=== PATIENT | male | born 1955 | race Caucasian/White ===

== ENCOUNTER → 2018-04-07 09:44 | Outpatient (CLI) | payer OTHER, SELFPAY ==
[2018-04-07 12:15] LABS: Blood Urea Nitrogen 13 mg/dL (7-18); Creatinine,Serum 1.07 mg/dL (0.70-1.30); Estimated Glomerular Filt Rate 70 ml/min (>60); GFR (African American) 85 ML/MIN (>60)
== END ==
PROVIDERS: Visit Provider Family Medicine
DX: Z01.812 Encounter for preprocedural laboratory examination (principal)
CPT/HCPCS: 36415; 82565; 84520

== ENCOUNTER → 2018-04-08 06:54 | Outpatient (CLI) | payer OTHER, SELFPAY ==
--- NOTE | 2018-04-08 | CI_ITS ---
Cerebrovascular Exam Indications: 785.9 Bruit. IMPRESSIONS 1. The bilateral vertebral arteries are patent with normal antegrade flow. 2. Study suggests 70-99% stenosis involving the right internal carotid artery. 3. Study suggests 50-69% stenosis involving the left internal carotid artery. Carotid duplex study. Complete study and Doppler flow study including spectral analysis, color and damon scale imaging. Height: Height: 188cm. Height: 74in. Weight: Weight: 112kg. Weight: 246.5lb. Body mass index: BMI: 31.7kg/m^2. Body surface area: BSA: 2.45m^2. Location: Vascular laboratory. Patient status: Outpatient. CRITICAL FINDINGS - Reported to: [facility] - Read back and verified. - 04/08/18 - 1145 - BILATERAL STENOSIS REPORTED Tables: Arterial flow: + +--------+--------+ Location V sys V ed + +--------+--------+ Right CCA - proximal 82.5cm/s 18.9cm/s + +--------+--------+ Right CCA - distal 89cm/s 17cm/s + +--------+--------+ Right ECA 85.4cm/s -------- + +--------+--------+ Right ICA - proximal 243cm/s 69.8cm/s + +--------+--------+ Right ICA - mid 136cm/s 36.7cm/s + +--------+--------+ Right ICA - distal 120cm/s 45.4cm/s + +--------+--------+ Right vertebral 52.1cm/s -------- + +--------+--------+ Left CCA - proximal 126cm/s 25.5cm/s + +--------+--------+ Left CCA - distal 122cm/s 23.6cm/s + +--------+--------+ Left ECA 114cm/s -------- + +--------+--------+ Left ICA - proximal 169cm/s 51.1cm/s + +--------+--------+ Left ICA - mid 142cm/s 37.3cm/s + +--------+--------+ Left ICA - distal 99.2cm/s 23.6cm/s + +--------+--------+ Left vertebral 53.9cm/s -------- + +--------+--------+ Velocity ratios: + + + + + + Right, V sys Right, V ed Left, V sys Left, V ed + + + + + + Max ICA/dist CCA 2.73 4.11 1.39 2.17 + + + + + + (Report amended ) Electronically signed by: Lyle Bradford [id number]
--- NOTE | 2018-04-08 07:15 | CT_ITS ---
CT angio coronary artery INDICATION: ITS.REASON: PURE HYPERCHOLESTEROLEMIA,BILATERAL CAD ORDERING PHYSICIAN: Singh Gloria MD PATIENT AGE: 62 years COMPARISON: None TECHNIQUE: Coronary artery calcium score performed initially. CT angiogram of the of the coronary arteries performed per usual technique. Bradycardia. She with 50 mg of metoprolol by mouth. Gated images acquired following the bolus administration of 60 mL's of Isovue-370. All CT scans at the facility use one or more dose reduction, viz: automated exposure control, ma/kV adjustment per patient size (including targeted exams where dose is matched to indication, i.e. head), or iterative reconstruction technique. FINDINGS: The coronary artery calcium score is 198 which indicates a moderate plaque burden with high cardiovascular disease risk. Coronary CTA findings: The proximal left main has an unremarkable appearance. There is calcific plaque at the distal aspect of the left main coronary artery with approximately 50% stenosis. At the distal aspect of the left main there is a trifurcation of the LAD and a prominent obtuse marginal and a smaller circumflex. Severe plaque is present at the ostium of the LAD with greater than 75% stenosis. The first diagonal immediately branches off the proximal aspect of the of the LAD and is occluded proximally. Stenosis is present at the ostium of the obtuse marginal of at least 50%. With no sign calcific and soft plaque. No significant stenosis of the circumflex. The right coronary artery is dominant giving rise to the PDA. Eccentric calcific plaque is present in the mid aspect of the RCA with at least 50% stenosis... Eccentric plaque is also present more distally in the RCA and within the proximal aspect of the PDA. With at least 50% stenosis of the proximal aspect of the PDA. PDA gives rise to the posterior lateral branch to the left ventricle. Most distal aspect of the PDA is cut off on the images. IMPRESSION: 1. Abnormal CTA of the coronary arteries. Calcific plaque is present at the distal left main causing at least 50% stenosis. 2. Severe stenosis of the proximal aspect of the LAD, occlusion of proximal first diagonal, and severe stenosis of the ostium of a dominant first marginal. 3. Moderate stenosis of the RCA and PDA. 4. Right-sided dominance. Suggest cardiology consult with coronary artery angiogram for confirmation of the above-mentioned findings
[2018-04-08 07:36] VITALS: BMI 31.7
== END ==
PROVIDERS: Family Provider Internal Medicine Adolescent Medicine; PCP Family Medicine; Visit Provider Family Medicine
DX: E78.00 Pure hypercholesterolemia, unspecified (principal); R94.30 Abnormal result of cardiovascular function study, unspecified; Z82.49 Family history of ischemic heart disease and other diseases of the circulatory system
CPT/HCPCS: 75574; 93880; Q9967

== ENCOUNTER 2021-05-02 16:16 | Emergency (ER) | payer MEDICARE, OTHER, SELFPAY ==
[2021-05-02 16:50] VITALS: BP 137/87; PULSE 78; RESP 16; TEMP 36.8; O2SAT 100; BMI 30.2
--- NOTE | 2021-05-02 17:28 | HMH.EDUTC ---
[facility] [place] Clinical Impression: Left against medical advice Disposition: Left Against Medical Advice Condition on Discharge: Undetermined Referrals: Singh Gloria MD [Primary Care Provider] - Medical Decision Making - Medical Records Medical records reviewed: No: I reviewed the patient's medical records. - Jon Inquiry Pt receiving controlled substance: No Vital Signs: 05/02/21 16:50 05/02/21 18:01 Temperature 98.3 F 0 F L Temperature Source Oral Pulse Rate 0 L Pulse Rate [Right Radial] 78 Respiratory Rate 16 0 L Blood Pressure 0/0 L Blood Pressure [Right Arm] 137/87 Blood Pressure Mean [Right Arm] 103 Blood Pressure Source [Right Arm] Automatic Cuff Blood Pressure Position [Right Arm] Sitting 02 Sat by Pulse Oximetry 100 Oxygen Delivery Method Room Air Orders (Tests/Meds): ORDERS Category Date Time Status Wound Culture and Gram Stain Stat Micro 05/02/21 17:30 Results [facility] [place] HPI - General Stated complaint: inf toe left toe Time Seen by Provider: 05/02/21 17:28 - History of Present Illness Provider Complaint: He states that approximately 2 weeks ago he accidentily bumped this right foot against something when he was walking. He says it hurt, but it didn't seem that bad. But, since then he has had worsening foot pain and swelling. He denies being diabetic. He denies any fever or chills or feeling bad other than the foot pain. - Related Data Home Medications Medication Instructions Recorded Confirmed Latanoprost [Xalatan 0.005% Ophth 1 drop OP HS 04/08/18 04/08/18 Soln 2.5mL] Miscellaneous [Unknown Home 250 mg PO DAILY 04/08/18 04/08/18 Medication] Timolol [Betimol] 1 drp OP DAILY 04/08/18 04/08/18 terbinafine HCl 250 mg tablet 250 mg PO DAILY 04/13/18 Previous Rx's Medication Instructions Recorded Sulfamethoxazole/Trimethoprim 1 each PO BID 10 Days #20 tab 05/02/21 [Bactrim DS tablet] cephALEXin [Cephalexin 500mg Tab] 500 mg PO Q6H 10 Days #40 tab 05/02/21 Allergies Allergy/AdvReac Type Severity Reaction Status Date / Time prednisone [PREDNISONE] Allergy Intermediate Verified 04/08/18 07:52 [facility] History - Hepatitis A Screen Attestation statement:: This patient has been screened for Hepatitis A risk factors. I have reviewed the patient's past medical history: Yes Other Medical History: Reports: Arthritis Comment: Glaucoma, CRISS Other Surgeries: Yes: Other (Oral Sx) - Social History Smoking Status: Never smoker Alcohol Intake: current Alcohol Intake Frequency:: holidays/special occasions only Substance Use Type: denies use Family Hx:: Coronary Artery Disease, Heart Attack Comment: Father- at 57 of possible MT ROS Obtained: Yes All systems reviewed & no additional complaints - Constitutional Constitutional: Denies chills, Denies fever(s) - Musculoskeletal Musculoskeletal: Reports as per HPI - Integumentary/Breasts Skin/Breast: Reports as per HPI Physical Exam - General General appearance: alert, in no apparent distress - Head Head exam: atraumatic, normocephalic, normal inspection - Eye Eye exam: Present: normal appearance, PERRL, EOMI - ENT ENT exam: Present: normal exam, normal oropharynx, mucous membranes moist, TM's normal bilaterally, normal external ear exam - Neck Neck exam: Present: normal inspection, full ROM, trachea midline. Absent: meningismus, lymphadenopathy - Chest Chest inspection: Present: normal inspection, symmetric chest wall rise. Absent: tenderness - Respiratory Respiratory exam: Present: normal lung sounds bilaterally. Absent: respiratory distress - Cardiovascular Cardiovascular exam: Present: regular rate, normal rhythm. Absent: JVD - Abdominal Exam Abdominal exam: Present: soft, normal bowel sounds. Absent: distention, tenderness, guarding - Extremities Exam Extremities exam: Present: normal inspection, full ROM, normal capillary refill. Absent: calf tenderness
--- NOTE | 2021-05-02 17:52 | PC.NURSE ---
Pt stated that he could not stay any longer because he had to take his home. CREDIT REVIEW OFFICER spoke with the pt and advised of the importance of needing labs drawn and further eval for possible infection in his great toe. Pt stated that he did not have a choice and could not stay any longer. Pt stated that he would return to the hospital after he took his home.
[2021-05-02 18:01] VITALS: BP 0/0; PULSE 0; RESP 0; TEMP -17.7; TEMP 0; O2SAT 0
== END 2021-05-02 18:02 | disposition left against medical advice (07) ==
PROVIDERS: Emergency Provider Nurse Practitioner Family; PCP Family Medicine
DX: M79.672 Pain in left foot (principal)
CPT/HCPCS: 87070; 87077; 87186; 87205; 99202; G0463

== ENCOUNTER 2021-05-02 18:30 | Emergency (ER) | payer MEDICARE, OTHER, SELFPAY ==
[2021-05-02 18:32] VITALS: BP 144/67; PULSE 74; RESP 16; TEMP 36.8; O2SAT 97; BMI 28.7
--- NOTE | 2021-05-02 18:49 | XR_ITS ---
PROCEDURE INFORMATION: Exam: XR Left Foot Exam date and time: 05/02/2021 6:49 PM Age: 65 years old Clinical indication: Condition or disease; Patient HX: Cellulitis; Open wound at plantar surface of 1st digit TECHNIQUE: Imaging protocol: XR Left foot. Views: 3 or more views. COMPARISON: No relevant prior studies available. FINDINGS: Bones/joints: Mild degenerative changes of the 1st metatarsophalangeal joint, manifest by joint space narrowing and marginal osteophyte formation. Small-sized plantar calcaneal enthesophyte. Mild degenerative changes of the talonavicular and naviculocuneiform joints. No acute fracture or dislocation. Soft tissues: Soft tissue swelling and ulceration involving the plantar aspect of the great toe. IMPRESSION: 1. No acute fracture or dislocation. 2. No radiographic evidence of osteomyelitis. 3. Soft tissue swelling and ulceration involving the plantar aspect of the great toe.
--- NOTE | 2021-05-02 19:03 | HMH.EDGENADL ---
ED Disposition Clinical Impression: Cellulitis Qualifiers: Site of cellulitis: extremity Site of cellulitis of extremity: lower extremity Laterality: left Qualified Code(s): L03.116 - Cellulitis of left lower limb Disposition: Home, Self-Care Condition on Discharge: Good Instructions: Cellulitis Prescriptions: Sulfamethoxazole/Trimethoprim [Bactrim DS tablet] 1 each PO BID 10 Days #20 tab Transmission Status: Pending to [facility] # cephALEXin [Cephalexin 500mg Tab] 500 mg PO Q6H 10 Days #40 tab Transmission Status: Pending to [facility] # Referrals: Singh Gloria MD [Primary Care Provider] - - Critical Care Critical Care Time: No Attestation: On 05/02/21, the high probability of a clinically significant, sudden or life threatening deterioration of the following system(s) required my full and direct attention, intervention and personal management. The time I documented below is in addition to time spent performing reported procedures but includes the following listed in this critical care notation. Medical Decision Making - Medical Records Medical records reviewed: Yes: I reviewed the patient's medical records. - Jon Inquiry Pt receiving controlled substance: No Vital Signs: 05/02/21 18:32 Temperature 98.2 F Temperature Source Oral Pulse Rate [Right Radial] 74 Respiratory Rate 16 Blood Pressure [Right Arm] 144/67 H Blood Pressure Mean [Right Arm] 92 Blood Pressure Source [Right Arm] Automatic Cuff Blood Pressure Position [Right Arm] Sitting 02 Sat by Pulse Oximetry 97 Oxygen Delivery Method Room Air - Lab Data Lab Results 05/02/21 19:10: WBC 10.1, RBC 4.58 L, Hgb 13.8 L, Hct 40.9 L, MCV 89.3, MCH 30.1, MCHC 33.7, RDW 13.5, Plt Count 340, MPV 6.8 L, Neut % (Auto) 75.8, Lymph % (Auto) 17.1, Laporte % (Auto) 4.9, Eos % (Auto) 1.7, Baso % (Auto) 0.5, Neut # (Auto) 7.6, Lymph # (Auto) 1.7, Laporte # (Auto) 0.5, Eos # (Auto) 0.2, Baso # (Auto) 0.1 05/02/21 19:10: Sodium 139, Potassium 4.4, Chloride 104, Carbon Dioxide 24, Anion Gap 15.4 H, BUN 14, Creatinine 0.90, Estimated Creat Clear 109, Estimated GFR 85, Est GFR ( Amer) 102, Glucose 122 H, Calcium 9.7, Total Bilirubin 0.4, AST 44, ALT 40, Alkaline Phosphatase 88, Total Protein 8.2, Albumin 4.5, Globulin 3.7 H, Albumin/Globulin Ratio 1.2 Result diagrams: 05/02/21 19:10 05/02/21 19:10 Orders (Tests/Meds): ED MEDICATIONS Generic Name Dose Route Start Last Admin Trade Name Freq PRN Reason Stop Dose Admin Sodium Chloride 1,000 mls @ 999 mls/hr 05/02/21 19:00 05/02/21 19:38 Sod Chlor 0.9% 1000ml Bag IV 05/02/21 20:00 999 mls/hr .Q1H1M YVETTE Administration Discontinued Medications Generic Name Dose Route Start Last Admin Trade Name Freq PRN Reason Stop Dose Admin Ceftriaxone Sodium 2 gm/ 50 mls @ 100 mls/hr 05/02/21 18:49 05/02/21 19:38 Sodium Chloride IV 05/02/21 19:18 100 mls/hr ONCE ONE Administration ORDERS Category Date Time Status XR foot LT min 3V Stat Exams 05/02/21 18:49 Taken Lactic Acid Stat Lab 05/02/21 19:31 Ordered Blood Culture Stat Micro 05/02/21 19:31 Ordered - Radiology Data #1 Image(s): Foot/Toes Image Reviewed: Yes I reviewed the patient's radiology results, Yes I reviewed the patient's radiology image Chronic arthritic changes. There is small ulcer on the plantar surface of the great toe. Obvious changes consistent with osteomyelitis. No - Reevaluation(s) Time: 19:41 Reevaluation #1: On reevaluation, patient is feeling better. Findings are consistent with cellulitis. White count appears to be appropriate. Hemodynamically stable. Nontoxic. Did have discussion with the patient given the open ulcer the bottom of his foot. Patient would like to do an outpatient treatment given current Covid pandemic. Patient was given IV antibiotics in the emergency department and will be discharged with dual antibiotic therapy. I do think it would
[2021-05-02 19:20] LABS: Basophils # 0.1 K/mm3 (0-0.2); Basophils % 0.5 % (0.1-2.0); Eosinophils # 0.2 K/mm3 (0.0-0.4); Eosinophils % 1.7 % (0.1-12.0); Hematocrit 40.9 % (42.0-52.0); Hemoglobin 13.8 g/dL (14.1-18.0); Lymphocytes # 1.7 K/mm3 (0.7-4.5); Lymphocytes % 17.1 % (10-50); Mean Corpuscular HGB Conc 33.7 g/dL (31.8-35.4); Mean Corpuscular Hemoglobin 30.1 pg (27.0-31.2); Mean Corpuscular Volume 89.3 fl (80-94); Mean Platelet Volume 6.8 fl (7.4-10.4); Monocytes # 0.5 K/mm3 (0.1-1.0); Monocytes % 4.9 % (1.7-9.3); Neutrophils # 7.6 K/mm3 (1.8-7.8); Neutrophils % 75.8 % (37.0-80.0); Platelet Count 340 K/mm3 (142-424); Red Blood Count 4.58 M/mm3 (4.60-6.20); Red Cell Distribution Width 13.5 % (11.5-17.5); White Blood Count 10.1 K/mm3 (4.8-10.8)
[2021-05-02 19:28] LABS: Chloride 104 mmol/L (98-107); Sodium 139 mmol/L (136-145)
[2021-05-02 19:29] LABS: Potassium 4.4 mmoL/L (3.5-5.1)
[2021-05-02 19:31] LABS: Alanine Aminotransferase 40 U/L (12-78); Albumin Level 4.5 g/dl (3.5-5.0); Albumin/Globulin Ratio 1.2 (1.1-1.8); Alkaline Phosphatase 88 U/L (38-126); Anion Gap 15.4 mEq/L (5-15); Aspartate Amino Transferase 44 U/L (17-59); Bilirubin,Total 0.4 mg/dl (0.2-1.3); Blood Urea Nitrogen 14 mg/dl (9-20); Calcium 9.7 mg/dl (8.4-10.2); Carbon Dioxide 24 mmol/L (22.0-30.0); Creatinine Clearance Estimated 109 mL/min (50-200); Estimated Glomerular Filt Rate 85 ml/min (>60); GFR (African American) 102 ML/MIN (>60); Globulin 3.7 g/dL (1.3-3.2); Glucose 122 mg/dl (74-100); Total Protein,Serum 8.2 g/dl (6.3-8.2)
[2021-05-02 20:35] VITALS: BP 145/87; PULSE 88; RESP 19; TEMP 37.2; O2SAT 98
== END 2021-05-02 20:39 | disposition home or self-care (01) ==
PROVIDERS: Emergency Provider Emergency Medicine; PCP Family Medicine
DX: L03.116 Cellulitis of left lower limb (principal)
CPT/HCPCS: G0463; 73630; 80053; 83605; 85025; 87040; 87070; 87077; 87186; 87205; 96365; 96367; 99202; 99283

== ENCOUNTER → 2021-05-21 14:32 | Outpatient (CLI) | payer MEDICARE, OTHER, SELFPAY ==
[2021-05-21 15:02] LABS: Basophils # 0.1 K/mm3 (0-0.2); Basophils % 0.9 % (0.1-2.0); Eosinophils # 0.2 K/mm3 (0.0-0.4); Eosinophils % 2.1 % (0.1-12.0); Hematocrit 40.9 % (42.0-52.0); Hemoglobin 13.5 g/dL (14.1-18.0); Lymphocytes # 2.4 K/mm3 (0.7-4.5); Lymphocytes % 24.2 % (10-50); Mean Corpuscular HGB Conc 32.9 g/dL (31.8-35.4); Mean Corpuscular Hemoglobin 29.2 pg (27.0-31.2); Mean Corpuscular Volume 88.7 fl (80-94); Mean Platelet Volume 7.8 fl (7.4-10.4); Monocytes # 0.5 K/mm3 (0.1-1.0); Monocytes % 5.3 % (1.7-9.3); Neutrophils # 6.6 K/mm3 (1.8-7.8); Neutrophils % 67.4 % (37.0-80.0); Platelet Count 395 K/mm3 (142-424); Red Blood Count 4.61 M/mm3 (4.60-6.20); Red Cell Distribution Width 14.5 % (11.5-17.5); White Blood Count 9.7 K/mm3 (4.8-10.8)
[2021-05-21 15:33] LABS: Erythrocyte Sedimentation Rate 40 mm/hr (0-20)
[2021-05-21 16:30] LABS: Alanine Aminotransferase 36 U/L (12-78); Albumin Level 4.4 g/dl (3.5-5.0); Albumin/Globulin Ratio 1.4 (1.1-1.8); Alkaline Phosphatase 88 U/L (38-126); Anion Gap 14.3 mEq/L (5-15); Aspartate Amino Transferase 41 U/L (17-59); Blood Urea Nitrogen 22 mg/dl (9-20); Calcium 9.4 mg/dl (8.4-10.2); Carbon Dioxide 25 mmol/L (22.0-30.0); Chloride 104 mmol/L (98-107); Estimated Glomerular Filt Rate 97 ml/min (>60); GFR (African American) 117 ML/MIN (>60); Globulin 3.1 g/dL (1.3-3.2); Glucose 94 mg/dl (74-100); Potassium 5.3 mmoL/L (3.5-5.1); Sodium 138 mmol/L (136-145); Total Protein,Serum 7.5 g/dl (6.3-8.2)
[2021-05-21 16:36] LABS: C-Reactive Protein 8.8 mg/L (0-4)
[2021-05-21 16:37] LABS: Bilirubin,Total 0.1 mg/dl (0.2-1.3)
== END ==
PROVIDERS: Visit Provider Nurse Practitioner
DX: S91.102A Unspecified open wound of left great toe without damage to nail, initial encounter (principal)
CPT/HCPCS: 36415; 80053; 85025; 85651; 86140

== ENCOUNTER → 2021-06-17 13:13 | Outpatient (CLI) | payer MEDICARE, OTHER, SELFPAY ==
[2021-06-17 13:57] LABS: Basophils # 0.1 K/mm3 (0-0.2); Basophils % 0.7 % (0.1-2.0); Eosinophils # 0.3 K/mm3 (0.0-0.4); Eosinophils % 3.2 % (0.1-12.0); Hematocrit 43.1 % (42.0-52.0); Hemoglobin 14.1 g/dL (14.1-18.0); Lymphocytes # 2.2 K/mm3 (0.7-4.5); Lymphocytes % 25.1 % (10-50); Mean Corpuscular HGB Conc 32.8 g/dL (31.8-35.4); Mean Corpuscular Hemoglobin 28.6 pg (27.0-31.2); Mean Corpuscular Volume 87.2 fl (80-94); Mean Platelet Volume 7.8 fl (7.4-10.4); Monocytes # 0.5 K/mm3 (0.1-1.0); Monocytes % 5.4 % (1.7-9.3); Neutrophils # 5.6 K/mm3 (1.8-7.8); Neutrophils % 65.5 % (37.0-80.0); Platelet Count 340 K/mm3 (142-424); Red Blood Count 4.94 M/mm3 (4.60-6.20); Red Cell Distribution Width 14.1 % (11.5-17.5); White Blood Count 8.6 K/mm3 (4.8-10.8)
[2021-06-17 14:27] LABS: Erythrocyte Sedimentation Rate 23 mm/hr (0-20)
[2021-06-17 14:35] LABS: Alanine Aminotransferase 37 U/L (12-78); Albumin Level 4.3 g/dl (3.5-5.0); Albumin/Globulin Ratio 1.4 (1.1-1.8); Alkaline Phosphatase 78 U/L (38-126); Anion Gap 14.8 mEq/L (5-15); Aspartate Amino Transferase 38 U/L (17-59); Bilirubin,Total 0.2 mg/dl (0.2-1.3); Blood Urea Nitrogen 14 mg/dl (9-20); Calcium 9.3 mg/dl (8.4-10.2); Carbon Dioxide 24 mmol/L (22.0-30.0); Chloride 104 mmol/L (98-107); Estimated Glomerular Filt Rate 97 ml/min (>60); GFR (African American) 117 ML/MIN (>60); Globulin 3.1 g/dL (1.3-3.2); Glucose 105 mg/dl (74-100); Potassium 4.8 mmoL/L (3.5-5.1); Sodium 138 mmol/L (136-145); Total Protein,Serum 7.4 g/dl (6.3-8.2)
[2021-06-17 14:40] LABS: C-Reactive Protein 12.2 mg/L (0-4)
== END ==
PROVIDERS: Visit Provider Podiatrist
DX: Z51.89 Encounter for other specified aftercare (principal); Z53.29 Procedure and treatment not carried out because of patient's decision for other reasons; L97.522 Non-pressure chronic ulcer of other part of left foot with fat layer exposed
CPT/HCPCS: 36415; 80053; 85025; 85651; 86140

== ENCOUNTER → 2021-07-23 15:31 | Outpatient (CLI) | payer MEDICARE, OTHER, SELFPAY ==
[2021-07-23 17:18] LABS: Basophils % 0.4 % (0.1-2.0); Eosinophils # 0.2 K/mm3 (0.0-0.4); Eosinophils % 2.6 % (0.1-12.0); Hematocrit 40.5 % (42.0-52.0); Hemoglobin 13.8 g/dL (14.1-18.0); Lymphocytes % 26.1 % (10-50); Mean Corpuscular HGB Conc 34.1 g/dL (31.8-35.4); Mean Corpuscular Hemoglobin 29.1 pg (27.0-31.2); Mean Corpuscular Volume 85.3 fl (80-94); Mean Platelet Volume 7.8 fl (7.4-10.4); Monocytes # 0.5 K/mm3 (0.1-1.0); Monocytes % 6.7 % (1.7-9.3); Neutrophils % 64.1 % (37.0-80.0); Platelet Count 367 K/mm3 (142-424); Red Blood Count 4.75 M/mm3 (4.60-6.20); Red Cell Distribution Width 13.8 % (11.5-17.5); White Blood Count 7.8 K/mm3 (4.8-10.8)
[2021-07-23 17:48] LABS: Alanine Aminotransferase 37 U/L (12-78); Albumin Level 4.7 g/dl (3.5-5.0); Albumin/Globulin Ratio 1.5 (1.1-1.8); Alkaline Phosphatase 74 U/L (38-126); Anion Gap 12.6 mEq/L (5-15); Aspartate Amino Transferase 42 U/L (17-59); Bilirubin,Total 0.4 mg/dl (0.2-1.3); Blood Urea Nitrogen 16 mg/dl (9-20); Carbon Dioxide 29 mmol/L (22.0-30.0); Chloride 101 mmol/L (98-107); Estimated Glomerular Filt Rate 84 ml/min (>60); GFR (African American) 102 ML/MIN (>60); Globulin 3.1 g/dL (1.3-3.2); Glucose 93 mg/dl (74-100); Potassium 5.6 mmoL/L (3.5-5.1); Sodium 137 mmol/L (136-145); Total Protein,Serum 7.8 g/dl (6.3-8.2)
[2021-07-23 17:54] LABS: C-Reactive Protein 11.9 mg/L (0-4)
[2021-07-23 17:55] LABS: Erythrocyte Sedimentation Rate 22 mm/hr (0-20)
== END ==
PROVIDERS: Visit Provider Nurse Practitioner
DX: Z51.89 Encounter for other specified aftercare (principal); Z53.29 Procedure and treatment not carried out because of patient's decision for other reasons; L97.522 Non-pressure chronic ulcer of other part of left foot with fat layer exposed
CPT/HCPCS: 36415; 80053; 85025; 85651; 86140

== ENCOUNTER → 2021-08-26 14:07 | Outpatient (CLI) | payer MEDICARE, OTHER, SELFPAY ==
--- NOTE | 2021-08-26 14:13 | XR_ITS ---
FINAL REPORT CLINICAL HISTORY: WOUND, HALLUX, weightbearing views for Dr Hensley. COMPARISON: May 02, 2021 FINDINGS: LEFT FOOT Three weight-bearing views of the left foot demonstrate no acute fracture or dislocation. There are mild degenerative changes. There are calcaneal spurs. There is a high density focus on the plantar aspect of the great toe measuring 12 mm which could represent a calcification or may be iatrogenic. There is a presumed subchondral cyst in the 1st metatarsal head. The soft tissues are unremarkable. IMPRESSION: 12 mm high density focus along the plantar aspect of the great toe. May be a calcification or may be iatrogenic. Reviewed, Interpreted and Dictated by Erick Atkins III, MD Transcribed by Rupinder Roche Authenticated by Erick Atkins III, MD on 08/26/2021 03:44:20 PM [facility]
== END ==
PROVIDERS: PCP Family Medicine; Visit Provider Podiatrist
DX: Z51.89 Encounter for other specified aftercare (principal); L97.523 Non-pressure chronic ulcer of other part of left foot with necrosis of muscle
CPT/HCPCS: 73630

== ENCOUNTER → 2021-09-15 14:35 | Outpatient (CLI) | payer MEDICARE, OTHER, SELFPAY ==
[2021-09-15 15:18] LABS: Basophils # 0.1 K/mm3 (0-0.2); Basophils % 1.1 % (0.1-2.0); Eosinophils # 0.3 K/mm3 (0.0-0.4); Eosinophils % 3.3 % (0.1-12.0); Hematocrit 41.5 % (42.0-52.0); Hemoglobin 13.6 g/dL (14.1-18.0); Lymphocytes # 2.1 K/mm3 (0.7-4.5); Lymphocytes % 22.7 % (10-50); Mean Corpuscular HGB Conc 32.8 g/dL (31.8-35.4); Mean Corpuscular Hemoglobin 28.3 pg (27.0-31.2); Mean Corpuscular Volume 86.5 fl (80-94); Mean Platelet Volume 7.7 fl (7.4-10.4); Monocytes # 0.5 K/mm3 (0.1-1.0); Monocytes % 5.8 % (1.7-9.3); Neutrophils # 6.2 K/mm3 (1.8-7.8); Platelet Count 365 K/mm3 (142-424); Red Blood Count 4.79 M/mm3 (4.60-6.20); Red Cell Distribution Width 14.3 % (11.5-17.5); White Blood Count 9.2 K/mm3 (4.8-10.8)
[2021-09-15 16:26] LABS: Chloride 102 mmol/L (98-107); Sodium 138 mmol/L (136-145)
[2021-09-15 16:27] LABS: Potassium 5.3 mmoL/L (3.5-5.1)
[2021-09-15 16:29] LABS: Alanine Aminotransferase 31 U/L (12-78); Albumin Level 4.6 g/dl (3.5-5.0); Albumin/Globulin Ratio 1.6 (1.1-1.8); Alkaline Phosphatase 74 U/L (38-126); Anion Gap 13.3 mEq/L (5-15); Aspartate Amino Transferase 39 U/L (17-59); Bilirubin,Total 0.5 mg/dl (0.2-1.3); Blood Urea Nitrogen 15 mg/dl (9-20); Carbon Dioxide 28 mmol/L (22.0-30.0); Estimated Glomerular Filt Rate 84 ml/min (>60); GFR (African American) 102 ML/MIN (>60); Globulin 2.8 g/dL (1.3-3.2); Total Protein,Serum 7.4 g/dl (6.3-8.2)
[2021-09-15 16:30] LABS: Calcium 8.8 mg/dl (8.4-10.2); Glucose 95 mg/dl (74-100)
[2021-09-15 16:36] LABS: C-Reactive Protein 12.3 mg/L (0-4)
[2021-09-15 17:16] LABS: Erythrocyte Sedimentation Rate 23 mm/hr (0-20)
== END ==
PROVIDERS: PCP Family Medicine; Visit Provider Podiatrist
DX: L97.522 Non-pressure chronic ulcer of other part of left foot with fat layer exposed (principal); Z53.29 Procedure and treatment not carried out because of patient's decision for other reasons
CPT/HCPCS: 36415; 80053; 85025; 85651; 86140

== ENCOUNTER → 2021-09-17 13:51 | Outpatient (CLI) | payer MEDICARE, OTHER, SELFPAY ==
--- NOTE | 2021-09-17 13:51 | MR_ITS ---
FINAL REPORT CLINICAL HISTORY: left hallux wound, NON DIABETIC ULCER LEFT HALLUX. 20ML PROHANCE INJECTED PRIOR XRAY 08-26-21 FINDINGS: Multiplanar MR imaging of the left foot was performed with and without contrast. There is bone marrow edema in the 1st distal phalanx without evidence of marrow replacement to suggest osteomyelitis. There are mild degenerative changes. There is mild enhancement of the 1st distal phalanx felt to be reactive. There is contrast enhancement of the 1st digit soft tissues consistent with inflammatory change. There is a soft tissue defect along the plantar aspect of the great toe. The flexor and extensor tendons are unremarkable. IMPRESSION: Soft tissue defect of the plantar aspect of the great toe . Contrast enhancement of the 1st digit soft tissues consistent with inflammatory change. Bone marrow edema in the 1st distal phalanx without evidence of osteomyelitis. Reviewed, Interpreted and Dictated by Erick Atkins III, MD Transcribed by Saroj Kelly Authenticated by Erick Atkins III, MD on 09/17/2021 04:06:[address] [facility]
== END ==
PROVIDERS: PCP Family Medicine; Visit Provider Podiatrist
DX: R60.0 Localized edema; L97.529 Non-pressure chronic ulcer of other part of left foot with unspecified severity
CPT/HCPCS: 73720; A9576

== ENCOUNTER 2022-06-08 13:00 | Inpatient (IN) | payer MEDICARE, OTHER, SELFPAY ==
[2022-06-08] VITALS (12 sets, daily range): BP systolic 107–154; BP diastolic 53–94; PULSE 65–75; RESP 14–22; TEMP 36.7–36.9; O2SAT 95–99; BMI 30.2; BMI 30.7
[2022-06-08 13:30] LABS: Basophils # 0.1 K/mm3 (0-0.2); Basophils % 0.7 % (0.1-2.0); Eosinophils # 0.3 K/mm3 (0.0-0.4); Eosinophils % 2.4 % (0.1-12.0); Hematocrit 41.4 % (42.0-52.0); Hemoglobin 13.6 g/dL (14.1-18.0); Lymphocytes # 2.1 K/mm3 (0.7-4.5); Lymphocytes % 16.8 % (10-50); Mean Corpuscular Hemoglobin 28.6 pg (27.0-31.2); Mean Corpuscular Volume 86.6 fl (80-94); Mean Platelet Volume 7.7 fl (7.4-10.4); Monocytes # 0.9 K/mm3 (0.1-1.0); Monocytes % 6.9 % (1.7-9.3); Neutrophils % 73.1 % (37.0-80.0); Platelet Count 440 K/mm3 (142-424); Red Blood Count 4.78 M/mm3 (4.60-6.20); White Blood Count 12.3 K/mm3 (4.8-10.8)
--- NOTE | 2022-06-08 13:31 | PC.NURSE ---
Called lab to draw blood cultures and lactic. Spoke with Mary Anne. She advised someone will come down.
--- NOTE | 2022-06-08 13:34 | XR_ITS ---
FINAL REPORT CLINICAL HISTORY: wound to gr toe, swelling and redness of left foot COMPARISON: 08/26/2021 FINDINGS: LEFT FOOT Three views of the left foot demonstrate no acute fracture or dislocation. The visualized joint spaces are normally aligned. There are mild degenerative changes. There is bony erosion of the 1st proximal phalanx with a pathologic fracture in this region. The appearance is worrisome for osteomyelitis. This is new since the prior examination. In addition, there is a soft tissue defect on the plantar aspect of the great toe. IMPRESSION: New bony erosion of the 1st proximal phalanx with a pathologic fracture in this region, worrisome for osteomyelitis. Reviewed, Interpreted and Dictated by Erick Atkins III, MD Transcribed by Rupinder Roche Authenticated and [facility]
--- NOTE | 2022-06-08 13:35 | PC.NURSE ---
Notified rad of foot xray
[2022-06-08 13:36] LABS: Chloride 100 mmol/L (98-107); Potassium 4.1 mmoL/L (3.5-5.1); Sodium 138 mmol/L (136-145)
[2022-06-08 13:38] LABS: Blood Urea Nitrogen 13 mg/dl (9-20); Creatinine Clearance Estimated 108 mL/min (50-200); Estimated Glomerular Filt Rate 84 ml/min (>60); GFR (African American) 102 ML/MIN (>60)
[2022-06-08 13:39] LABS: Alanine Aminotransferase 26 U/L (12-78); Albumin Level 4.5 g/dl (3.5-5.0); Albumin/Globulin Ratio 1.2 (1.1-1.8); Alkaline Phosphatase 92 U/L (38-126); Anion Gap 18.1 mEq/L (5-15); Aspartate Amino Transferase 32 U/L (17-59); Bilirubin,Total 0.6 mg/dl (0.2-1.3); Calcium 8.8 mg/dl (8.4-10.2); Carbon Dioxide 24 mmol/L (22.0-30.0); Globulin 3.7 g/dL (1.3-3.2); Glucose 131 mg/dl (74-100); Total Protein,Serum 8.2 g/dl (6.3-8.2)
--- NOTE | 2022-06-08 13:44 | HMH.EDSKAF ---
Discharge Plan Disposition Patient Disposition: Admitted As Inpatient Chief Complaint: Skin/Abscess/Foreign Body Prescriptions Prescriptions: No Action No Known Home Medications Referrals Follow up/Referrals: Singh Gloria MD [Primary Care Provider] - See instructions Clinical Impressions Clinical Impression: Osteomyelitis, Syncope Instructions Patient Instructions: DI for Skin Abscess Discharge ED Provider: Luca Jimenez Skin/Abscess/FB HPI General Chief complaint: Skin/Abscess/Foreign Body Stated complaint: syncope Time Seen by Provider: 06/08/22 13:44 Mode of Arrival: EMS Source of Information: Patient, EMS and Medical Record Limitations: No Limitations Description of Symptoms (Recalled from ER Triage Doc. by RN): Pt presents to ED via EMS with swelling and red streaking to left foot x2 days. Pt has hole to bottom of left great toe that pt states was originally from a grafting procedure done by podiatry. EMS states that reported pt sitting in his chair, getting ready to come to ED to have foot evaluated when he had a syncopal episode while in his chair. Pt states that he remembers feeling fuzzy headed right before his syncopal episode History of Present Illness HPI narrative: has progressive reddness and swelling to lt great toe with hx of infection in the same months ago- also has syncopal episode today and felt lightheaded w/o chest pain but at baseline now MD complaint: abscess/boil Onset (ago): day(s) Tetanus up to date: unsure Location: L foot Severity: severe Associated symptoms: denies other symptoms Related Data Home Medications Medication Instructions Recorded Confirmed No Known Home Medications 10/01/21 12/03/21 Allergies Allergy/AdvReac Type Severity Reaction Status Date / Time prednisone [PREDNISONE] Allergy Intermediate Verified 12/03/21 13:04 PFSH PFS Social History Smoking Status: Never smoker alcohol intake: current substance use type: denies use current occupational status: retired Travel in the last 8 weeks: None ROS Obtained: Yes All systems reviewed & no additional complaints except as documented Constitutional Constitutional: Denies fever(s) Integumentary/Breasts Skin/Breast: Reports as per HPI Physical Exam General General appearance: alert Head Head exam: normocephalic Eye Eye exam: Present PERRL and EOMI ENT ENT exam: Present mucous membranes moist Neck Neck exam: Present trachea midline Respiratory Respiratory exam: Present normal lung sounds bilaterally; Absent respiratory distress Cardiovascular Cardiovascular exam: Present regular rate Abdominal Exam Abdominal exam: Present soft Expanded Lower Extremity Exam Left: Foot/toe exam: Present tenderness, erythema and other (infected changes lt great toe ) Neurological Exam Neurological exam: Present alert, oriented X3 and CN II-XII intact; Absent motor sensory deficit Psychiatric Psychiatric exam: Present normal affect Skin Skin exam: Present other (changes lt great toe ); Absent rash Medical Decision Making Medical Records Medical records reviewed: Yes I reviewed the patient's medical records. Jon Inquiry Pt receiving controlled substance: No Vital Signs: 06/08/22 13:07 06/08/22 13:31 06/08/22 14:01 Temperature 98.4 F Temperature Source Oral Pulse Rate 69 70 Pulse Rate [Left Radial] 73 Respiratory Rate 16 14 14 Blood Pressure 107/53 L 134/61 Blood Pressure [Right Arm] 144/72 H Blood Pressure Mean 71 75 Blood Pressure Mean [Right Arm] 96 Blood Pressure Source [Right Arm] Automatic Cuff Blood Pressure Position [Right Arm] Sitting 02 Sat by Pulse Oximetry 99 98 99 Oxygen Delivery Method Room Air 06/08/22 14:31 Temperature Temperature Source Pulse Rate 65 Pulse Rate [Left Radial] Respiratory Rate 20 Blood Pressure 134/65 Blood Pressure [Right Arm] Blood Pressure Mean 78 Blood Pressure Mean [Right Arm] Blood
[2022-06-08 13:45] LABS: Coronavirus 19, PCR Not Detected (NotDetected); Influenza A, PCR Not Detected (NotDetected); Influenza B, PCR Not Detected (NotDetected)
[2022-06-08 13:53] LABS: Hemoglobin A1C 5.6 % (4.0-6.0)
--- NOTE | 2022-06-08 14:01 | ECG_ITS ---
APPROVED REPORT Exam: Resting ECG HR:67 bpm ECG Measurements Heart Rate 67 AXES MI 154 P 16 QRSd 86 QRS 9 QT 394 T 78 QTc 410 Conclusion SINUS RHYTHM NONSPECIFIC T-WAVE ABNORMALITY BORDERLINE ECG UNCONFIRMED REPORT Electronically signed by : Rogerio Varner MD 06/08/2022 16:35:53
[2022-06-08 14:02] LABS: Lactic Acid 1.3 mmol/L (0.7-2.1)
--- NOTE | 2022-06-08 15:41 | PC.NURSE ---
Dr Jimenez spoke with Dr Solano for admission
[2022-06-08 16:08] LABS: C-Reactive Protein 55.8 mg/L (0-4)
--- NOTE | 2022-06-08 16:15 | PC.NURSE ---
DR. Hensley at bedside
--- NOTE | 2022-06-08 16:33 | US_ITS ---
FINAL REPORT CLINICAL HISTORY: decreased pulses, ulcer left great toe. Patient states it's been there for years but hasn't been infected. claudication. FINDINGS: BILATERAL ANKLE BRACHIAL INDICES Pressure indices are as follows are: RIGHT LOWER EXTREMITY Ankle brachial pressure index: 0.88 Toe brachial pressure index: 0.76 COMMENTS: Mild vascular disease LEFT LOWER EXTREMITY Ankle brachial pressure index: 1.06 Toe brachial pressure index: 0.62 COMMENTS: Normal IMPRESSION: Mild vascular disease in the right lower extremity. Reviewed, Interpreted and Dictated by Erick Atkins III, MD Transcribed by Cassi Haas Authenticated and [facility]
--- NOTE | 2022-06-08 16:39 | EXP.ORTH.CON ---
History of Present Illness *Admission Date: 06/08/22 *Reason for visit:: Left hallux OM *History of present illness: Patient is a 67-year-old male who presents with a left plantar hallux ulceration. Patient is not diabetic last A1c today 5.6%. Patient had been following up with podiatry for the chronic left great toe wound present for over 1.5 years. He was receiving in office graft applications weekly. Patient had the course of wound grafts however the wound was still not fully closed. Patient had been noncompliant with offloading and continue to weight-bear throughout previous treatments. He last was seen in podiatry office 12/03/2021. Patient wanted HBO treatment at that time and did not follow-up with me. Patient presents to the ER today for left foot cellulitis, ulcer and osteomyelitis on x-ray. Podiatry consulted for surgical evaluation of osteomyelitis. [facility] Medical History Arthritis of right hip Social History (Updated 06/08/22 @ 18:55 by Tsering Rice RN) Smoking Status: Never smoker alcohol intake: never substance use type: denies use current occupational status: retired Travel in the last 8 weeks: None Review of Systems Review of Systems Review of systems:: pertinent systems reviewed and negative unless documented below Constitutional Constitutional: Reports system reviewed and no additional complaints, except as documented Eyes Eyes: Reports system reviewed and no additional complaints, except as documented ENT Ears, Nose, Mouth, and Throat: Reports system reviewed and no additional complaints, except as documented *Cardiovascular Cardiovascular: Reports system reviewed and no additional complaints, except as documented and Denies dyspnea *Respiratory Respiratory: Reports system reviewed and no additional complaints, except as documented and Denies dyspnea *Gastrointestinal Gastrointestinal: Reports system reviewed and no additional complaints, except as documented and Reports other (decreased appetite) *Genitourinary Genitourinary: Reports system reviewed and no additional complaints, except as documented *Musculoskeletal Musculoskeletal: Reports system reviewed and no additional complaints, except as documented and Reports joint swelling (left 1st MPJ) Integumentary/Breasts Skin/Breast: Reports system reviewed and no additional complaints, except as documented, Reports dry skin and Reports wounds (left plantar hallux ulcer) *Neurologic Neurologic: Reports system reviewed and no additional complaints, except as documented Psychiatric Psychiatric: Reports system reviewed and no additional complaints, except as documented Endocrine Endocrine: Reports system reviewed and no additional complaints, except as documented Hematologic/Lymphatic Hematologic/Lymphatic: Reports system reviewed and no additional complaints, except as documented Allergic/Immunologic Allergic/Immunologic: Reports system reviewed and no additional complaints, except as documented Meds Home Medications and Allergies Home Medications Medication Instructions Recorded Confirmed Type No Known Home Medications 10/01/21 06/08/22 History New Prescriptions to Start Prescriptions: Allergies Allergy/AdvReac Type Severity Reaction Status Date / Time prednisone [PREDNISONE] Allergy Intermediate Verified 12/03/21 13:04 Ortho Exam (Inpt) Vital signs and Labs for Last 24 Hours: Temp Pulse Resp BP Pulse Ox 98.4 F 65 20 134/65 97 06/08/22 13:07 06/08/22 14:31 06/08/22 14:31 06/08/22 14:31 06/08/22 14:31 Laboratory Results - last 24 hr 06/08/22 13:00: WBC 12.3 H, RBC 4.78, Hgb 13.6 L, Hct 41.4 L, MCV 86.6, MCH 28.6, MCHC 33.0, RDW 14.0, Plt Count 440 H, MPV 7.7, Neut % (Auto) 73.1, Lymph % (Auto) 16.8, [place] % (Auto) 6.9, Eos % (Auto) 2.4, Baso % (Auto) 0.7, Neut # (Auto) 9.0 H, Lymph # (Auto) 2.1, [place] # (Auto) 0.9, Eos # (Auto) 0.3, Baso # (Auto) 0.1 06/08/22
--- NOTE | 2022-06-08 16:53 | PC.NURSE ---
vascular in room with pt.
--- NOTE | 2022-06-08 16:54 | EXP.HP ---
History of Present Illness *Admission Date: 06/08/22 *Reason for visit:: left foot drainage, weakness *History of present illness: Mr. Alexandra is a 67-year-old male who is on no medications at this time. No significant past medical history other than a wound on his left great toe that was being treated with graft by podiatry. He last saw them earlier this year and was lost to follow-up. Patient presented today to the ER via EMS because his reported an episode where he became dizzy and altered. He went to get up from a chair and became confused and made concerning noises. Due to his altered mental status, she brought him to the ER for further evaluation. On arrival he was feeling better, work-up obtained including imaging of his foot (noted to be abnormal with a draining wound), EKG, and labs. Patient's labs concerning for elevated white cell count. Vitals normal. Imaging positive for osteomyelitis of distal phalanx of left great toe. Podiatry and medicine consulted for admission and possible surgery. Of note, patient is not diabetic last A1c today 5.6%. He is back to baseline mentation at this time. Denies shortness of breath, chest pain, nausea, vomiting. Mild pain with palpation of the toe. Otherwise no fevers. Does complain of some pain in his right hip that is chronic. [facility] Medical History Arthritis of right hip Social History Smoking Status: Never smoker alcohol intake: current substance use type: denies use current occupational status: retired Travel in the last 8 weeks: None Review of Systems Review of Systems Review of systems (narrative): 14 point review of systems performed, pertinent positives and negatives as per HPI Meds Home Medications and Allergies Home Medications Medication Instructions Recorded Confirmed Type No Known Home Medications 10/01/21 06/08/22 History New Prescriptions to Start Prescriptions: Allergies Allergy/AdvReac Type Severity Reaction Status Date / Time prednisone [PREDNISONE] Allergy Intermediate Verified 12/03/21 13:04 Exam Data for Last 24 hours Vital signs and Labs for Last 24 Hours: Temp Pulse Resp BP Pulse Ox 98.4 F 75 20 151/74 H 96 06/08/22 13:07 06/08/22 16:31 06/08/22 16:31 06/08/22 16:31 06/08/22 16:31 Laboratory Results - last 24 hr 06/08/22 13:00: WBC 12.3 H, RBC 4.78, Hgb 13.6 L, Hct 41.4 L, MCV 86.6, MCH 28.6, MCHC 33.0, RDW 14.0, Plt Count 440 H, MPV 7.7, Neut % (Auto) 73.1, Lymph % (Auto) 16.8, [place] % (Auto) 6.9, Eos % (Auto) 2.4, Baso % (Auto) 0.7, Neut # (Auto) 9.0 H, Lymph # (Auto) 2.1, [place] # (Auto) 0.9, Eos # (Auto) 0.3, Baso # (Auto) 0.1 06/08/22 13:00: Sodium 138, Potassium 4.1, Chloride 100, Carbon Dioxide 24, Anion Gap 18.1 H, BUN 13, Creatinine 0.90, Estimated Creat Clear 108, Estimated GFR 84, Est GFR ( Amer) 102, Glucose 131 H, Calcium 8.8, Total Bilirubin 0.6, AST 32, ALT 26, Alkaline Phosphatase 92, Total Protein 8.2, Albumin 4.5, Globulin 3.7 H, Albumin/Globulin Ratio 1.2 06/08/22 13:00: Hemoglobin A1c 5.6 06/08/22 13:00: C-Reactive Protein 55.8 H 06/08/22 13:35: SARS-CoV-2 (PCR) Not detected, Influenza A Untype (PCR) Not detected, Influenza Type B (PCR) Not detected 06/08/22 13:45: Lactate 1.3 I & O for Last 24 hours: Intake & Output 06/05/22 06/06/22 06/07/22 06/08/22 23:59 23:59 23:59 23:59 Weight 106.594 kg Constitutional Constitutional: no acute distress and obese *Routine HEENT Exam Head: Present normocephalic and atraumatic Eye: Present EOMI and PERRL ENT: Present mucous membranes moist *Routine Neck Exam Neck: Present supple; Absent JVD Routine Chest/Breast/Axilla Exam Chest wall: Absent tenderness *Routine Respiratory Exam Respiratory: Present CTA bilaterally; Absent accessory muscle use, respiratory distress, rhonchi, wheezes or crackles *Routine Cardiovascular Exam Cardiovascular: Present RRR, Normal S1 and
--- NOTE | 2022-06-08 17:15 | PC.NURSE ---
Attempted to call report on pt to 2nd floor, but received no answer from nurse. Will try again in 10 minutes.
--- NOTE | 2022-06-08 17:23 | PC.NURSE ---
Called report to Sylwia
--- NOTE | 2022-06-08 17:37 | PC.NURSE ---
patient arrived to floor by stretcher from ED
[2022-06-08 18:01] LABS: Erythrocyte Sedimentation Rate 84 mm/hr (0-20)
[2022-06-08 18:14] LABS: Microscopic, Urine URINE MICROSCOPIC (MICROSCOPIC)
[2022-06-08 18:15] LABS: Appearance,Urine CLEAR (Clear); Bilirubin,Urine Negative (Negative); Blood, Urine Negative (Negative); Color,Urine YELLOW (Yellow); Glucose,Urine (UA) Negative (Negative); Ketones,Urine Negative (Negative); Leukocyte Esterase,Urine Negative (Negative); Nitrate,Urine Negative (Negative); Protein,Urine Negative (Negative); Specific Gravity, Urine 1.025 (1.005-1.030); Urobilinogen,Urine 0.2 EU/dl (0.2)
--- NOTE | 2022-06-08 19:04 | PC.WOUNDNOTE ---
right big toe
[2022-06-08 19:05] LABS: Squamous Epithelial Cell,Urine Occasional #/hpf (0-5)
--- NOTE | 2022-06-08 19:05 | PC.WOUNDNOTE ---
right big toe
[2022-06-09 04:00] VITALS: BP 149/69; PULSE 66; RESP 16; TEMP 37.2; O2SAT 96
[2022-06-09 05:00] VITALS: BMI 30.7
[2022-06-09 06:32] LABS: Basophils # 0.1 K/mm3 (0-0.2); Basophils % 0.6 % (0.1-2.0); Eosinophils # 0.3 K/mm3 (0.0-0.4); Eosinophils % 2.9 % (0.1-12.0); Hematocrit 37.4 % (42.0-52.0); Lymphocytes % 18.6 % (10-50); Mean Corpuscular HGB Conc 32.5 g/dL (31.8-35.4); Mean Corpuscular Hemoglobin 27.9 pg (27.0-31.2); Mean Corpuscular Volume 85.8 fl (80-94); Mean Platelet Volume 7.4 fl (7.4-10.4); Monocytes # 0.7 K/mm3 (0.1-1.0); Monocytes % 6.4 % (1.7-9.3); Neutrophils # 7.7 K/mm3 (1.8-7.8); Neutrophils % 71.4 % (37.0-80.0); Platelet Count 369 K/mm3 (142-424); Red Blood Count 4.36 M/mm3 (4.60-6.20); Red Cell Distribution Width 14.1 % (11.5-17.5); White Blood Count 10.8 K/mm3 (4.8-10.8)
[2022-06-09 06:34] LABS: Chloride 102 mmol/L (98-107); Sodium 138 mmol/L (136-145)
[2022-06-09 06:37] LABS: Alanine Aminotransferase 18 U/L (12-78); Albumin Level 3.8 g/dl (3.5-5.0); Albumin/Globulin Ratio 1.2 (1.1-1.8); Alkaline Phosphatase 77 U/L (38-126); Aspartate Amino Transferase 27 U/L (17-59); Bilirubin,Total 0.3 mg/dl (0.2-1.3); Blood Urea Nitrogen 12 mg/dl (9-20); Calcium 8.3 mg/dl (8.4-10.2); Carbon Dioxide 26 mmol/L (22.0-30.0); Creatinine Clearance Estimated 110 mL/min (50-200); Estimated Glomerular Filt Rate 96 ml/min (>60); GFR (African American) 117 ML/MIN (>60); Globulin 3.3 g/dL (1.3-3.2); Glucose 111 mg/dl (74-100); Magnesium 1.9 mg/dl (1.6-2.3); Total Protein,Serum 7.1 g/dl (6.3-8.2)
[2022-06-09 07:28] VITALS: BP 179/85; PULSE 77; RESP 17; TEMP 36.5; O2SAT 95
--- NOTE | 2022-06-09 07:35 | EXP.PHA.CONS ---
Pharmacy Consult Date: 06/09/22 Time: 07:35 Referring provider: DR. OTERO Reason for Consult:: VANCOMYCIN DOSING Allergies Allergy/AdvReac Type Severity Reaction Status Date / Time prednisone [PREDNISONE] Allergy Intermediate Verified 12/03/21 13:04 Home Medications Medication Instructions Recorded Confirmed Type No Known Home Medications 10/01/21 06/08/22 History New Prescriptions to Start Prescriptions: Height: 1.88 m Weight: 108.635 kg Laboratory Results:: Laboratory Results - last 24 hr 06/08/22 13:00: WBC 12.3 H, RBC 4.78, Hgb 13.6 L, Hct 41.4 L, MCV 86.6, MCH 28.6, MCHC 33.0, RDW 14.0, Plt Count 440 H, MPV 7.7, Neut % (Auto) 73.1, Lymph % (Auto) 16.8, [place] % (Auto) 6.9, Eos % (Auto) 2.4, Baso % (Auto) 0.7, Neut # (Auto) 9.0 H, Lymph # (Auto) 2.1, [place] # (Auto) 0.9, Eos # (Auto) 0.3, Baso # (Auto) 0.1 06/08/22 13:00: Sodium 138, Potassium 4.1, Chloride 100, Carbon Dioxide 24, Anion Gap 18.1 H, BUN 13, Creatinine 0.90, Estimated Creat Clear 108, Estimated GFR 84, Est GFR ( Amer) 102, Glucose 131 H, Calcium 8.8, Total Bilirubin 0.6, AST 32, ALT 26, Alkaline Phosphatase 92, Total Protein 8.2, Albumin 4.5, Globulin 3.7 H, Albumin/Globulin Ratio 1.2 06/08/22 13:00: Hemoglobin A1c 5.6 06/08/22 13:00: ESR 84 H 06/08/22 13:00: C-Reactive Protein 55.8 H 06/08/22 13:35: SARS-CoV-2 (PCR) Not detected, Influenza A Untype (PCR) Not detected, Influenza Type B (PCR) Not detected 06/08/22 13:45: Lactate 1.3 06/08/22 17:55: Urine Color Yellow, Urine Appearance Clear, Urine pH 6.0, Ur Specific [place] 1.025, Urine Protein Negative, Urine Glucose (UA) Negative, Urine Ketones Negative, Urine Blood Negative, Urine Nitrate Negative, Urine Bilirubin Negative, Urine Urobilinogen 0.2, Ur Leukocyte Esterase Negative, Urine RBC None, Urine WBC None, Ur Squamous Epith Cells Occasional, Urine Bacteria None 06/09/22 06:00: Sodium 138, Potassium 4.0, Chloride 102, Carbon Dioxide 26, Anion Gap 14.0, BUN 12, Creatinine 0.80, Estimated Creat Clear 110, Estimated GFR 96, Est GFR ( Amer) 117, Glucose 111 H, Calcium 8.3 L, Magnesium 1.9, Total Bilirubin 0.3, AST 27, ALT 18 D, Alkaline Phosphatase 77, Total Protein 7.1, Albumin 3.8 D, Globulin 3.3 H, Albumin/Globulin Ratio 1.2 Medical History: Medical History (Updated 06/08/22 @ 18:19 by Hayden Otero MD) Arthritis of right hip Assessment and Plan Assessment and plan all Dx Assessment and Plan for all problems:: Pharmacokinetic dosing service Objective: Patient: Floor: Age: 67 yo Serum creatinine: 0.80 mg/dL Height: 74.0 Inches Weight (kg): 108.6 Assessment: IBW (kg): 82.20 Dosing wt(kg): 108.6 Estimated Creatinine clearance (ml/min): 104.2 CRCL method: Cockcroft and Gault using ibw(default). Drug selected: Vancomycin Loading dose (mg): Vd (liters): 81.4 (factor used: 0.75 L/kg) Chava (hr-1): 0.091 Half life (hrs): 7.62 CLvanco=?? 7.407 L/hr Recommended dose: 2000 mg Interval: 12 hrs Infusion time (hrs): 2.0 Predicted peak (mcg/mL): 33.8 Predicted trough (mcg/mL): 13.61 Total body weight is being used for vancomycin dosing. Recommendations: Give Vancomycin 2000 mg q 12 hrs with an expected Cpeak of 33.8 mcg/ml and an expected Ctrough of 13.61 mcg/ml AUC 0-24 /CAROLINA Data: CAROLINA 0.5 mcg/mL:?? AUC/CAROLINA:? 1080.1 [place] 1.0 mcg/mL:?? AUC/[place]INA:? 540.0 --------- [place] 1.5 mcg/mL:?? AUC/[place]INA:? 360.0 [place] 2.0 mcg/mL:?? AUC/[place]INA:? 270.0 Thank you for the consult, will continue to follow. -BHAKTI ANGEL, LUIS ALBERTOD
[2022-06-09 07:52] LABS: Hemoglobin 12.2 g/dL (14.1-18.0)
--- NOTE | 2022-06-09 08:35 | EXP.ORTH.PN ---
Subjective *Date: 06/10/22 *Time: 08:18 Interval history: Patient resting in bed alert and oriented x3. Denies pain. No acute distress noted. Left hallux wound dressing changed. Patient remains NPO. Left hallux amputation and I & D surgery scheduled for today at 11:45. Ortho Exam (Inpt) Vital signs and Labs for Last 24 Hours: Temp Pulse Resp BP Pulse Ox 97.7 F 77 17 179/85 H 95 06/09/22 07:28 06/09/22 07:28 06/09/22 07:28 06/09/22 07:28 06/09/22 07:28 Laboratory Results - last 24 hr 06/08/22 13:00: WBC 12.3 H, RBC 4.78, Hgb 13.6 L, Hct 41.4 L, MCV 86.6, MCH 28.6, MCHC 33.0, RDW 14.0, Plt Count 440 H, MPV 7.7, Neut % (Auto) 73.1, Lymph % (Auto) 16.8, [place] % (Auto) 6.9, Eos % (Auto) 2.4, Baso % (Auto) 0.7, Neut # (Auto) 9.0 H, Lymph # (Auto) 2.1, [place] # (Auto) 0.9, Eos # (Auto) 0.3, Baso # (Auto) 0.1 06/08/22 13:00: Sodium 138, Potassium 4.1, Chloride 100, Carbon Dioxide 24, Anion Gap 18.1 H, BUN 13, Creatinine 0.90, Estimated Creat Clear 108, Estimated GFR 84, Est GFR ( Amer) 102, Glucose 131 H, Calcium 8.8, Total Bilirubin 0.6, AST 32, ALT 26, Alkaline Phosphatase 92, Total Protein 8.2, Albumin 4.5, Globulin 3.7 H, Albumin/Globulin Ratio 1.2 06/08/22 13:00: Hemoglobin A1c 5.6 06/08/22 13:00: ESR 84 H 06/08/22 13:00: C-Reactive Protein 55.8 H 06/08/22 13:35: SARS-CoV-2 (PCR) Not detected, Influenza A Untype (PCR) Not detected, Influenza Type B (PCR) Not detected 06/08/22 13:45: Lactate 1.3 06/08/22 17:55: Urine Color Yellow, Urine Appearance Clear, Urine pH 6.0, Ur Specific [place] 1.025, Urine Protein Negative, Urine Glucose (UA) Negative, Urine Ketones Negative, Urine Blood Negative, Urine Nitrate Negative, Urine Bilirubin Negative, Urine Urobilinogen 0.2, Ur Leukocyte Esterase Negative, Urine RBC None, Urine WBC None, Ur Squamous Epith Cells Occasional, Urine Bacteria None 06/09/22 06:00: WBC 10.8, RBC 4.36 L, Hgb 12.2 L D, Hct 37.4 L, MCV 85.8, MCH 27.9, MCHC 32.5, RDW 14.1, Plt Count 369, MPV 7.4, Neut % (Auto) 71.4, Lymph % (Auto) 18.6, [place] % (Auto) 6.4, Eos % (Auto) 2.9, Baso % (Auto) 0.6, Neut # (Auto) 7.7, Lymph # (Auto) 2.0, [place] # (Auto) 0.7, Eos # (Auto) 0.3, Baso # (Auto) 0.1 06/09/22 06:00: Sodium 138, Potassium 4.0, Chloride 102, Carbon Dioxide 26, Anion Gap 14.0, BUN 12, Creatinine 0.80, Estimated Creat Clear 110, Estimated GFR 96, Est GFR ( Amer) 117, Glucose 111 H, Calcium 8.3 L, Magnesium 1.9, Total Bilirubin 0.3, AST 27, ALT 18 D, Alkaline Phosphatase 77, Total Protein 7.1, Albumin 3.8 D, Globulin 3.3 H, Albumin/Globulin Ratio 1.2 I & O for Labs for Last 24 Hours: Intake & Output 06/06/22 06/07/22 06/08/22 06/09/22 23:59 23:59 23:59 23:59 Intake Total 0 / 0 Output Total 600 / 600 Balance -600 / -600 0 / 0 Weight 239 lb 3 oz 239 lb 8 oz Microbiology Reports for the Last 24 Hours: Microbiology 06/08/22 13:26 Foot,Left Gram Stain - Final Constitutional: Present no acute distress and obese Head: Present normocephalic Neck: Present normal inspection Respiratory: Present normal respiratory effort and able to speak in complete sentences Cardiac: Present Regular Rate and pedal pulses present GI: Present other (obesity) Rectal (male): Present deferred (male): Present deferred Extremities: Present tenderness (left hallux), edema (left hallux) and joint swelling (left hallux) Skin: Present erythema and wounds Comment:: Present erythema and wounds (left plantar hallux ulcer: hair in wound bed, wound probes full thickness to capsule over proximal phalanx) Neuro: Present oriented x 3 and moves all extremities Ankle: left: swelling and bilateral: normal inspection Feet/Toes: left: erythema, left: swelling (forefoot extending to ankle) and left: tenderness (L Hallux) and bilateral: hammer toe and bilateral: onychomycosis Feet w/LR Ind Bottom: 1. Left 1st proximal phalanx wound with osteomyelitis and pathological fracture of the proximal phalanx great toe. Assessment and
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
--- NOTE | 2022-06-09 11:08 | CT_ITS ---
FINAL REPORT CLINICAL HISTORY: syncope FINDINGS: Axial images of the head were obtained without contrast. Coronal reformatted images were also obtained. This study was performed with techniques to keep radiation doses as low as reasonably achievable (ALARA). Individualized dose reduction techniques using automated exposure control or adjustment of mA and/or kV according to the patient's size were employed. There is generalized age-appropriate atrophy. Periventricular low-attenuation areas are seen consistent with mild chronic ischemic changes. There is no evidence of intracranial hemorrhage or mass. There is no evidence of acute infarct. There is no evidence of shift of the midline structures. No skull abnormality is seen on the bone window images. IMPRESSION: Atrophy and mild periventricular chronic ischemic changes. No acute intracranial abnormality identified. Reviewed, Interpreted and Dictated by Erick Atkins III, MD Transcribed by Veronica Vaz Authenticated and [facility]
--- NOTE | 2022-06-09 11:30 | CA_ITS ---
APPROVED REPORT EXAM: Comprehensive 2D, Doppler, and color-flow Echocardiogram Electron Gun Assembler: CECILY Castro, RVS Ht: 6 ft 2 in Wt: 240lbs BSA: 2.35 BP: 151/86 mmHg Indications: Pre-op lt great toe amputaion due to osteomyelitis, Syncope Echo Enhancing Agent Comments: Technically difficult exam due to chest circumference 2D Dimensions IVSd 1.24 cm LVEF (Visual) 66.40 % PWd 1.28 cm LA Volume 84.00 mL LVDd 5.25 cm LA Volume Index 34.90 mL/m2 (M/F) 16-34 LVDs 3.31 cm Aortic Root 2.75 cm Left Atrium 3.47 cm LVOT 1.91 cm (M/F) 1.5-2.5 M-Mode Dimensions LA Diam 3.96 cm (1.9-4.0) Ao Diam 3.11 cm (2.0-3.7) EPSs 0.77 cm TAPSE 2.99 (<1.7) LV Diastology E Decel Time 223.00 (160-240 msec) E/A Ratio 0.98 MED E' 6.00 (< 7 cm/sec) MED A' 9.30 cm/s E'/MED E' Ratio 14.90 (>14) LAT E' 6.10 (<10 cm/sec) LAT A' 10.50 cm/s E/LAT E' Ratio 14.66 (>14) Aortic Valve AoV Peak David. 95.00 (50-130 cm/s) AO Peak GR. 3.60 mmHg AO Mean GR. 1.80 (<5 mmHg) AO VTI 19.44 (18-25 cm) Mitral Valve MV A Velocity 91.00 (40-130 cm/s) E/A Ratio 0.98 MV Decel. Time 223.00 (160-240 ms) MV PHT 67.00 ms Pulmonary Valve PV Peak Velocity 101.00 (50-150 cm/s) Tricuspid Valve TR P. Velocity 308.00 cm/s RAP Estimate 10.00 mmHg RVSP 47.80 mmHg Left Ventricle Left atrium is mildly enlarged, left ventricle is normal size, estimated ejection fraction 50% with no regional wall motion abnormality, diastolic parameters are inconclusive. Right Ventricle Right atrium and right ventricle are mildly enlarged with normal contractility. Aortic Valve Aortic valve is minimally thickened and fibrosed there is no aortic stenosis aortic insufficiency. Mitral Valve Mitral valve is grossly normal, there is trace mitral regurgitation. Tricuspid Valve Tricuspid valve grossly normal, there is trace tricuspid regurgitation, tricuspid regurgitation jet velocity is inadequate for calculation of the right ventricular systolic pressure. Pulmonic Valve Pulmonic valve is poorly visualized. Great Vessels Aortic root is normal size. Inferior vena cava is poorly visualized. Pericardium No significant pericardial effusion noted. Conclusion 1. Mild biatrial enlargement, normal left ventricular size, estimated ejection fraction 50% with no regional wall motion abnormality, diastolic parameters are inconclusive. 2. Mildly enlarged left ventricle with normal contractility. 3. Trace mitral and tricuspid regurgitation. 4. No significant pericardial effusion noted. 5. Inferior vena cava is poorly visualized. Electronically signed by : Robles Huang MD 06/09/2022 20:14:39
[2022-06-09 11:39] LABS: Cholesterol 204 mg/dl (140-200); Triglycerides 127 mg/dl (30-150); VLDL Cholesterol 25 mg/dL (0-40)
[2022-06-09 11:40] LABS: Chol/HDL Ratio 6.6 (1-3.5); HDL Cholesterol 31 mg/dl (40-60)
[2022-06-09 11:50] LABS: Direct LDL Cholesterol 118.32 mg/dL (100-129)
--- NOTE | 2022-06-09 12:18 | CA_ITS ---
FINAL REPORT TECHNIQUE: Color Doppler, duplex Doppler and damon scale sonography of the bilateral neck vasculature was performed. Velocities were measured in the carotid arteries. Stenosis evaluation based on velocity criteria. CLINICAL HISTORY: fernando known Rt ICA stenosis 70-99% 03/2018 without intervention. FINDINGS: The peak systolic velocity of the right common carotid artery is 122 cm/sec and internal carotid artery cm/sec. No flow is identified in the right internal carotid artery consistent with occlusion. The external carotid artery is patent. The right vertebral artery is patent with antegrade flow. The peak systolic velocity of the left common carotid artery is 187 cm/sec and internal carotid artery 134 cm/sec. The diastolic velocity in the internal carotid artery is 68 cm/sec. The ICA/CCA ratio is 1.2. Visually, a moderate amount of plaque is seen. These findings are consistent with less than 50% stenosis. The external carotid artery is patent. The left vertebral artery is patent with antegrade flow. 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 Less than 50% stenosis in the left internal carotid artery. Bilateral patent vertebral arteries. If indicated, CTA or catheter angiography could further evaluate. Reviewed, Interpreted and Dictated by Erick Atkins III, MD Transcribed by Cassi Haas Authenticated and [facility]
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
[2022-06-09 13:35] LABS: Troponin I 0.01 ng/ml (0.00-0.034)
[2022-06-09 14:05] VITALS: BP 147/65
[2022-06-09 15:35] VITALS: BP 149/59; PULSE 67; RESP 17; TEMP 36.4; O2SAT 99
--- NOTE | 2022-06-09 16:11 | PC.NURSE ---
Blood pressure elevated at beginning of shift, cardiology consulted. Metoprolol ordered as well as other medications but patient adamant about only taking metoprolol as he does not take medications. Surgery rescheduled for tomorrow with Dr. Hensley. Cardiology wants to do heart cath based on echo results but patient is weary. VS stable during rest of shift and patient remained on room air. No pain reported from toe.
[2022-06-09 16:51] LABS: Troponin I 0.01 ng/ml (0.00-0.034)
--- NOTE | 2022-06-09 17:16 | EXP.PN ---
Subjective *Date: 06/09/22 *Time: 17:16 Interval history: Date of service June 09, 2022 The patient is laying in bed accompanied by his and daughter. I am accompanied by multiple members of the MDR team. The reports that she is concerned with the patient's choking episode yesterday, loss of consciousness and persistent mental status changes that resolved in the ED. She reports that she had her back to her who was napping in his recliner when she heard a gurgling sound turned around and identified that he had passed out. She tried to awaken him by shaking him and stimulating his face. He finally came to but seem to be dazed and unfocused. She reports that in the ED he was incoherent and answering questions incorrectly. Today the patient reports no further passing out spells. Family denies dysarthria, word finding difficulty, loss of motor or sensory function. He was able to get up and go to the bathroom today. He denies a past history of stroke or seizure disorder. He was told several years ago that he had calcified coronary arteries on a CT scan of his heart. He was offered statin therapy but he declined. Today he is concerned with chronic right hip pain that he attributes to an old karate injury. He denies any recent falls and uses a cane to ambulate. Nursing staff report that he remains afebrile with stable heart rates but increasing blood pressures and he is saturating appropriately on room air. He reports a chronic left toe wound not healing over several months. His recent SHIRA identifies mild peripheral vascular disease on the right. Family is requesting a cardiology evaluation. Exam Data for Last 24 hours Vital signs and Labs for Last 24 Hours: Temp Pulse Resp BP Pulse Ox 97.6 F 67 17 149/59 H 99 06/09/22 15:35 06/09/22 15:35 06/09/22 15:35 06/09/22 15:35 06/09/22 15:35 Laboratory Results - last 24 hr 06/08/22 13:00: ESR 84 H 06/08/22 17:55: Urine Color Yellow, Urine Appearance Clear, Urine pH 6.0, Ur Specific [employer] 1.025, Urine Protein Negative, Urine Glucose (UA) Negative, Urine Ketones Negative, Urine Blood Negative, Urine Nitrate Negative, Urine Bilirubin Negative, Urine Urobilinogen 0.2, Ur Leukocyte Esterase Negative, Urine RBC None, Urine WBC None, Ur Squamous Epith Cells Occasional, Urine Bacteria None 06/09/22 06:00: WBC 10.8, RBC 4.36 L, Hgb 12.2 L D, Hct 37.4 L, MCV 85.8, MCH 27.9, MCHC 32.5, RDW 14.1, Plt Count 369, MPV 7.4, Neut % (Auto) 71.4, Lymph % (Auto) 18.6, [place] % (Auto) 6.4, Eos % (Auto) 2.9, Baso % (Auto) 0.6, Neut # (Auto) 7.7, Lymph # (Auto) 2.0, [place] # (Auto) 0.7, Eos # (Auto) 0.3, Baso # (Auto) 0.1 06/09/22 06:00: Sodium 138, Potassium 4.0, Chloride 102, Carbon Dioxide 26, Anion Gap 14.0, BUN 12, Creatinine 0.80, Estimated Creat Clear 110, Estimated GFR 96, Est GFR ( Amer) 117, Glucose 111 H, Calcium 8.3 L, Magnesium 1.9, Total Bilirubin 0.3, AST 27, ALT 18 D, Alkaline Phosphatase 77, Total Protein 7.1, Albumin 3.8 D, Globulin 3.3 H, Albumin/Globulin Ratio 1.2 06/09/22 06:00: Triglycerides 127, Cholesterol 204 H, LDL Cholesterol Direct 118.32, VLDL Cholesterol 25, HDL Cholesterol 31 L, Cholesterol/HDL Ratio 6.6 H 06/09/22 12:48: Troponin I 0.01 06/09/22 16:00: Troponin I 0.01 I & O for Last 24 hours: Intake & Output 06/06/22 06/07/22 06/08/22 06/09/22 23:59 23:59 23:59 23:59 Intake Total 2043 Output Total 600 / 600 0 / 0 Balance -600 / -600 2043 Weight 108.494 kg 108.635 kg Microbiology Reports for the Last 24 Hours: Microbiology 06/08/22 13:26 Foot,Left Gram Stain - Final 06/08/22 13:26 Foot,Left Wound Culture - Preliminary Gram Negative Rods Constitutional Constitutional: no acute distress, obese and cooperative *Routine HEENT Exam Head: Present normocephalic and atraumatic Eye: Present EOMI and PERRL ENT: Present mucous membranes moist, oropharynx clear and other (Mallampati
[2022-06-09 19:38] LABS: Troponin I 0.01 ng/ml (0.00-0.034)
[2022-06-09 19:49] VITALS: BP 122/52; PULSE 78; RESP 16; TEMP 36.6; O2SAT 99
--- NOTE | 2022-06-09 21:22 | PC.NURSE ---
Pt refusing lipitor at this time. Pt states It is really bad for you. When teaching given on Lipitor and medication action, pt states My cholesterol was only 204 so it wasnt high. And that pill doesnt lower cholesterol levels anyway. I have been dealing with this stuff for over 40 years and I dont want to take it. Medication placed back into omni.
[2022-06-10] VITALS (21 sets, daily range): BP systolic 119–181; BP diastolic 64–93; PULSE 50–73; RESP 16–19; TEMP 36.4–37.1; O2SAT 94–99; BMI 30.5
--- NOTE | 2022-06-10 | IR_ITS ---
APPROVED REPORT Patient Location: Inpatient Rate Supervisor: BRAYDEN Irwin RT (R) PROCEDURES Selective coronary angiogram Drug-eluting stent deployment to the ramus intermedius Drug-eluting stent deployment to the proximal and mid LAD Drug-eluting stent deployment to the ostial proximal distal left main artery Intravascular ultrasound to the left main artery INDICATION Coronary artery disease, Refusal to consider bypass surgery, Preoperative evaluation SCAI INDICATION Clinical history: 67-year-old gentleman with known multivessel coronary artery disease based on CAT scan from several years ago who presents to the hospital with osteomyelitis of the great toe. Patient has had an interval reduction in ejection fraction at 45% as well as an interval occlusion of his internal carotid artery which was previously moderately diseased. Historically patient has elected to only pursue homeopathic therapies for his probably vascular disease. Given the degree of the osteomyelitis and interval occlusion of the internal carotid artery patient has elected for coronary angiography. He is vehement that bypass surgery is not an option and he would not consider it under any circumstances including life-threatening situations. I spoke with the patient prior to the coronary angiogram and he requested only percutaneous revascularization be provided. I did agree and was willing to proceed with what was considered high risk percutaneous intervention based on the distal left main disease etc. Informed consent was obtained prior to the procedure. COMPLICATIONS None Estimated Blood Loss: Less than 10 mls TECHNIQUE One percent lidocaine used to anesthetize the right anterior aspect of the wrist. The right radial artery was accessed via the Seldinger technique. A 6 [place] sheath was placed in the right radial artery. 2.5 mg of verapamil, 800 mcg of nitroglycerin, 1mg Lidocaine and 5000 U Heparin were given through the arterial sheath. The papa catheter was also used to perform selective coronary angiography. At the end of the diagnostic procedure therapeutic heparin was administered giving a therapeutic ACT and the guide catheter was placed in the left main artery. A wire was initially placed into the large ramus intermedius and predilatation was made. A 4 mm x 30 mm resolute [place] stent was placed in the proximal left main artery extending into the ramus intermedius and deployed initially at 16 yen. The balloon was brought back and then dilated at 20 yen. There was still a lesion in the distal left main artery therefore a 4 mm x 12 mm noncompliant balloon was deployed at 24 yen to post dilate. There was jailing of the LAD therefore choice PT extra-support wire was placed into the LAD. At this point there was difficulty getting balloons through the calcification therefore a guide liner was used. Eventually a 2 mm compliant balloon was able to get into the proximal LAD and then deployed this was upsized to a 2.5 and then 3 mm balloon. Eventually a 3 mm x 26 mm resolute Isidoro stent was placed in the mid left main artery extending into the proximal LAD and then deployed at 20 yen and then 24 yen. A 4 mm balloon was then advanced into the ostium and then dilated to further open the struts of the 3 mm balloon. Wire was replaced back into the ramus intermedius and additional ballooning was performed going into the ramus intermedius. There appeared to be eccentric calcification just proximal to the LAD which made it difficulty getting balloons and stents into the area. Intravascular ultrasound was attempted to be performed however this would not get past the distal left main artery due to eccentric calcification and poor expansion o
[2022-06-10 06:35] LABS: Basophils # 0.1 K/mm3 (0-0.2); Basophils % 0.6 % (0.1-2.0); Eosinophils # 0.5 K/mm3 (0.0-0.4); Eosinophils % 3.8 % (0.1-12.0); Hematocrit 39.7 % (42.0-52.0); Lymphocytes # 1.9 K/mm3 (0.7-4.5); Lymphocytes % 15.1 % (10-50); Mean Corpuscular HGB Conc 32.8 g/dL (31.8-35.4); Mean Corpuscular Hemoglobin 28.5 pg (27.0-31.2); Mean Corpuscular Volume 86.7 fl (80-94); Mean Platelet Volume 7.8 fl (7.4-10.4); Monocytes # 0.8 K/mm3 (0.1-1.0); Monocytes % 6.2 % (1.7-9.3); Neutrophils # 9.5 K/mm3 (1.8-7.8); Neutrophils % 74.4 % (37.0-80.0); Platelet Count 399 K/mm3 (142-424); Red Blood Count 4.58 M/mm3 (4.60-6.20); Red Cell Distribution Width 14.1 % (11.5-17.5); White Blood Count 12.8 K/mm3 (4.8-10.8)
[2022-06-10 06:36] LABS: Chloride 101 mmol/L (98-107); Potassium 4.3 mmoL/L (3.5-5.1); Sodium 136 mmol/L (136-145)
[2022-06-10 06:39] LABS: Anion Gap 15.3 mEq/L (5-15); Blood Urea Nitrogen 13 mg/dl (9-20); Carbon Dioxide 24 mmol/L (22.0-30.0); Creatinine Clearance Estimated 110 mL/min (50-200); Estimated Glomerular Filt Rate 96 ml/min (>60); GFR (African American) 117 ML/MIN (>60)
[2022-06-10 06:40] LABS: Calcium 8.6 mg/dl (8.4-10.2); Glucose 108 mg/dl (74-100)
--- NOTE | 2022-06-10 07:21 | PC.NURSE ---
No c/o voiced to staff. Ambulating to BR standby assist using straight cane. Call light within reach.
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
[2022-06-10 10:41] LABS: Vancomycin,Trough 12.4 ug/mL (5.0-10.0)
--- NOTE | 2022-06-10 11:07 | SUR.OPER ---
family updated on pt's procedure.
--- NOTE | 2022-06-10 11:52 | SUR.OPER ---
family updated on patients procedure at this time.
--- NOTE | 2022-06-10 12:42 | SUR.OPER ---
family updated on patient procedure.
--- NOTE | 2022-06-10 12:48 | EXP.PN ---
Subjective *Date: 06/10/22 *Time: 12:48 Interval history: Date of service 06/10/2022 The patient is accompanied by his . He reports a restless night secondary to his chronic right hip pain. He is due for left heart cath today. I am accompanied by multiple members of the MDR team. We have reviewed and discussed his imaging from yesterday including his right hip x-ray, CT of the head, carotid Dopplers and echocardiogram. His morning labs have been reviewed and discussed as well. His troponins were negative x3. Exam Data for Last 24 hours Vital signs and Labs for Last 24 Hours: Temp Pulse Resp BP Pulse Ox 98.8 F 73 17 181/93 H 97 06/10/22 07:48 06/10/22 07:48 06/10/22 07:48 06/10/22 10:59 06/10/22 07:48 Laboratory Results - last 24 hr 06/09/22 12:48: Troponin I 0.01 06/09/22 16:00: Troponin I 0.01 06/09/22 18:54: Troponin I 0.01 06/10/22 06:07: WBC 12.8 H, RBC 4.58 L, Hgb 13.0 L, Hct 39.7 L, MCV 86.7, MCH 28.5, MCHC 32.8, RDW 14.1, Plt Count 399, MPV 7.8, Neut % (Auto) 74.4, Lymph % (Auto) 15.1, [place] % (Auto) 6.2, Eos % (Auto) 3.8, Baso % (Auto) 0.6, Neut # (Auto) 9.5 H, Lymph # (Auto) 1.9, [place] # (Auto) 0.8, Eos # (Auto) 0.5 H, Baso # (Auto) 0.1 06/10/22 06:07: Sodium 136, Potassium 4.3, Chloride 101, Carbon Dioxide 24, Anion Gap 15.3 H, BUN 13, Creatinine 0.80, Estimated Creat Clear 110, Estimated GFR 96, Est GFR ( Amer) 117, Glucose 108 H, Calcium 8.6 06/10/22 09:33: Vancomycin Trough 12.4 H I & O for Last 24 hours: Intake & Output 06/07/22 06/08/22 06/09/22 06/10/22 23:59 23:59 23:59 23:59 Intake Total 2284 / 2284 0 / 0 Output Total 600 / 600 0 / 0 0 / 0 Balance -600 / -600 2284 / 2284 0 / 0 Weight 108.494 kg 108.635 kg 108 kg Microbiology Reports for the Last 24 Hours: Microbiology 06/08/22 13:26 Foot,Left Gram Stain - Final 06/08/22 13:26 Foot,Left Wound Culture - Preliminary Providencia rettgeri Gram Positive Cocci Constitutional Constitutional: no acute distress and obese *Routine HEENT Exam Head: Present normocephalic and atraumatic Eye: Present EOMI and PERRL ENT: Present mucous membranes moist *Routine Neck Exam Neck: Present supple, full ROM and carotid bruit (On right); Absent JVD, lymphadenopathy or thyromegaly *Routine Respiratory Exam Respiratory: Present CTA bilaterally, normal respiratory effort and symmetric chest movement; Absent respiratory distress *Routine Cardiovascular Exam Cardiovascular: Present RRR, Normal S1 and Normal S2; Absent murmur *Routine Abdominal Exam Abdominal: Present soft and normoactive bowel sounds *Routine Extremities Exam Extremities: Present normal capillary refill and tenderness (Right hip); Absent cyanosis *Routine Skin Exam Skin: Present intact and warm; Absent rash *Routine Neurological Exam Neurological: Present alert, oriented X3, moving all extremities, normal tone, vision grossly intact and hearing grossly intact; Absent sensory deficit or motor deficit Routine Psychiatric Exam Psychiatric: Present cooperative and anxious Assessment and Plan *Assessment and plan (1) Syncope: Status: Acute Category: Medical Code(s): R55 - Syncope and collapse (2) Open wound of toe of left foot: Status: Acute Category: Medical Code(s): S91.109A - Unspecified open wound of unspecified toe(s) without damage to nail, initial encounter (3) Osteomyelitis of great toe of left foot: Status: Acute Category: Medical Code(s): M86.9 - Osteomyelitis, unspecified (4) Coronary artery disease: Status: Acute Qualifiers: Coronary Disease-Associated Artery/Lesion type: [place] artery [place] vs. transplanted heart: [place] heart Associated angina: without angina Qualified Code(s): I25.10 - Atherosclerotic heart disease of [place] coronary artery without angina pectoris Category: Medical Code(s): I25.10
--- NOTE | 2022-06-10 13:44 | CA_ITS ---
APPROVED REPORT EXAM: Comprehensive 2D, Doppler, and color-flow Echocardiogram Newspaper Or Periodical Editor: Suri Fowler RCS, RVS Ht: 6 ft 2 in Wt: 240lbs BSA: 2.35 BP: 96/59 mmHg Indications: Post Cath r/o effusion Echo Enhancing Agent Comments: Negative for effusion. LVF unchanged from 06/09/22 [id number]% Conclusion 1. Limited echocardiogram was obtained to evaluate for pericardial effusion. 2. No significant pericardial effusion noted. Electronically signed by : Robles Huang MD 06/12/2022 15:36:33
--- NOTE | 2022-06-10 13:49 | SUR.PHASEII ---
echo notified of order. echo to come to bedside to perform test.
--- NOTE | 2022-06-10 13:54 | PC.NURSE ---
PATIENT BELONGINGS MOVED TO ROOM 219. AT BEDSIDE UPDATED ON PLAN OF CARE AND ROOM CHANGE AT THIS TIME. NO FURTHER QUESTIONS OR CONCERNS.
--- NOTE | 2022-06-10 13:54 | SUR.PHASEII ---
echo at bedside to perform test.
[2022-06-10 14:54] LABS: CATHL Activated Clotting Time 208 SEC (74-125)
[2022-06-10 14:55] LABS: CATHL Activated Clotting Time 307 SEC (74-125)
[2022-06-10 14:56] LABS: CATHL Activated Clotting Time 260 SEC (74-125)
[2022-06-10 14:58] LABS: CATHL Activated Clotting Time 300 SEC (74-125)
[2022-06-10 14:58] LABS: CATHL Activated Clotting Time > 400 SEC (74-125)
--- NOTE | 2022-06-10 17:42 | PC.NURSE ---
Patient is s/p cardiac cath with stent placement, resting comfortably in bed, with home cpap in place, right radial cath site cdi, no bleeding or hematoma noted, SB per telemetry, vss, dsg to Left foot cdi, denies any cp or soa, integrelin infusing per MD order, no s/s of distress noted.
[2022-06-11] VITALS (21 sets, daily range): BP systolic 117–170; BP diastolic 56–89; PULSE 60–85; RESP 11–21; TEMP 36.4–37; O2SAT 92–98; BMI 32.5
--- NOTE | 2022-06-11 04:33 | PC.NURSE ---
Pt A&Ox4. Has not c/o any pain. (R) radial Cath site is intact with scant drainage noted. VS are currently stable. Pt was on CPAP most of night. Family is concerned about periods of apnea t/o night. 2L O2 NC placed on pt for comfort. Pt has non productive cough. Incentive spirometer given to pt. Education provided. Pt has been up x1 and voided in urinal. Tolerated fair. Pt had difficulty due to (R) hip. Medication administered per oct. Call light within reach. Family remains at bedside.
[2022-06-11 06:47] LABS: Basophils # 0.1 K/mm3 (0-0.2); Basophils % 0.3 % (0.1-2.0); Chloride 100 mmol/L (98-107); Eosinophils # 0.1 K/mm3 (0.0-0.4); Eosinophils % 0.4 % (0.1-12.0); Hematocrit 36.1 % (42.0-52.0); Lymphocytes # 1.1 K/mm3 (0.7-4.5); Lymphocytes % 7.3 % (10-50); Mean Corpuscular Hemoglobin 27.9 pg (27.0-31.2); Mean Corpuscular Volume 87.1 fl (80-94); Mean Platelet Volume 7.7 fl (7.4-10.4); Monocytes # 0.9 K/mm3 (0.1-1.0); Monocytes % 5.9 % (1.7-9.3); Neutrophils # 13.2 K/mm3 (1.8-7.8); Platelet Count 370 K/mm3 (142-424); Potassium 3.9 mmoL/L (3.5-5.1); Red Blood Count 4.14 M/mm3 (4.60-6.20); Red Cell Distribution Width 14.2 % (11.5-17.5); Sodium 135 mmol/L (136-145); White Blood Count 15.3 K/mm3 (4.8-10.8)
[2022-06-11 06:49] LABS: Blood Urea Nitrogen 12 mg/dl (9-20); Creatinine Clearance Estimated 117 mL/min (50-200); Estimated Glomerular Filt Rate 112 ml/min (>60); GFR (African American) 136 ML/MIN (>60)
[2022-06-11 06:50] LABS: Anion Gap 13.9 mEq/L (5-15); Carbon Dioxide 25 mmol/L (22.0-30.0); Glucose 117 mg/dl (74-100)
[2022-06-11 06:54] LABS: MANUAL DIFFERENTIAL MANUAL DIFFERENTIAL (MANUAL DIFF)
[2022-06-11 06:55] LABS: Hemoglobin 11.6 g/dL (14.1-18.0)
[2022-06-11 07:11] LABS: Lymphocytes % 7 % (10-50); Monocytes % 4 % (2-9); Neutrophils % 89 % (42-76); Platelet Estimate Normal; RBC Morphology Normal; Total Cells Counted 100
--- NOTE | 2022-06-11 08:08 | EXP.ORTH.PN ---
Subjective *Date: 06/11/22 *Time: 20:00 Interval history: Patient lying in bed awake alert and oriented. Denies pain and no acute distress noted. Left plantar hallux wound dressing changed, no drainage noted. Kimberly-wound cellulitis improving. Dr. Hensley discussed plan for surgery after cardiac clearance by Dr. Valladares, both patient and spouse agreed with the plan of care. Ortho Exam (Inpt) Vital signs and Labs for Last 24 Hours: Temp Pulse Resp BP Pulse Ox 97.6 F 82 20 136/75 95 06/11/22 04:00 06/11/22 04:00 06/11/22 04:00 06/11/22 04:00 06/11/22 04:00 Laboratory Results - last 24 hr 06/10/22 09:33: Vancomycin Trough 12.4 H 06/10/22 10:45: Activated Clotting Time 300 H* 06/10/22 11:11: Activated Clotting Time > 400 H* D 06/10/22 11:50: Activated Clotting Time 260 H* D 06/10/22 12:36: Activated Clotting Time 307 H* 06/10/22 12:55: Activated Clotting Time 208 H* D 06/11/22 05:35: WBC 15.3 H, RBC 4.14 L, Hgb 11.6 L D, Hct 36.1 L, MCV 87.1, MCH 27.9, MCHC 32.0, RDW 14.2, Plt Count 370, MPV 7.7, Neut % (Auto) 86.0 H, Lymph % (Auto) 7.3 L, Iron % (Auto) 5.9, Eos % (Auto) 0.4, Baso % (Auto) 0.3, Neut # (Auto) 13.2 H, Lymph # (Auto) 1.1, Iron # (Auto) 0.9, Eos # (Auto) 0.1, Baso # (Auto) 0.1, Total Counted 100, Neutrophils % (Manual) 89 H, Lymphocytes % (Manual) 7 L, Monocytes % (Manual) 4, Platelet Estimate Normal, RBC Morphology Normal 06/11/22 05:35: Sodium 135 L, Potassium 3.9, Chloride 100, Carbon Dioxide 25, Anion Gap 13.9, BUN 12, Creatinine 0.70, Estimated Creat Clear 117, Estimated GFR 112, Est GFR ( Amer) 136, Glucose 117 H, Calcium 8.0 L I & O for Labs for Last 24 Hours: Intake & Output 06/08/22 06/09/22 06/10/22 06/11/22 23:59 23:59 23:59 23:59 Intake Total 2284 / 2284 559 / 559 1886 / 1886 Output Total 600 / 600 0 / 0 0 / 0 400 / 400 Balance -600 / -600 2284 / 2284 559 / 559 1486 / 1486 Weight 239 lb 3 oz 239 lb 8 oz 238 lb 1.588 oz 253 lb 6 oz Microbiology Reports for the Last 24 Hours: Microbiology 06/08/22 13:45 Blood Blood Culture - Preliminary NO GROWTH AFTER 48 HOURS 06/08/22 13:45 Blood Blood Culture - Preliminary NO GROWTH AFTER 48 HOURS 06/08/22 13:26 Foot,Left Gram Stain - Final 06/08/22 13:26 Foot,Left Wound Culture - Preliminary Providencia rettgeri Gram Positive Cocci Constitutional: Present no acute distress Head: Present normocephalic Neck: Present normal inspection Respiratory: Present normal respiratory effort and able to speak in complete sentences Cardiac: Present Regular Rate and pedal pulses present GI: Present other (obesity) Rectal (male): Present deferred (male): Present deferred Extremities: Present normal capillary refill, edema (left hallux) and calf tenderness Muscle Strength (Extremity): Patient Baseline Skin: Present erythema (improved with IV antibitic) and wounds (left plantar hallux) Comment:: left plantar hallux ulcer: wound probes full thickness to capsule over proximal phalanx) Neuro: Present oriented x 3 and moves all extremities Ankle: bilateral: normal inspection Feet/Toes: left: erythema, left: swelling, left: tenderness and left: wound and bilateral: nail abnormalities Feet w/LR Ind Bottom: 1. Left 1st proximal phalanx wound with osteomyelitis and pathological fracture of the proximal phalanx great toe. Assessment and Plan *Assessment and plan (1) Open wound of toe of left foot: Status: Acute Category: Medical Code(s): S91.109A - Unspecified open wound of unspecified toe(s) without damage to nail, initial encounter (2) Osteomyelitis of great toe of left foot: Status: Acute Category: Medical Code(s): M86.9 - Osteomyelitis, unspecified (3) Cellulitis of left foot: Status: Acute Category: Medical Code(s): L03.116 - Cellulitis of left lower limb (4) Prim
--- NOTE | 2022-06-11 09:26 | EXP.PHA.CONS ---
Pharmacy Consult Date: 06/11/22 Time: 09:27 Referring provider: DR. OTERO Reason for Consult:: VANCOMYCIN LEVEL Allergies Allergy/AdvReac Type Severity Reaction Status Date / Time prednisone [PREDNISONE] Allergy Intermediate Verified 12/03/21 13:04 Home Medications Medication Instructions Recorded Confirmed Type No Known Home Medications 10/01/21 06/08/22 History New Prescriptions to Start Prescriptions: Height: 1.88 m Weight: 114.929 kg Laboratory Results:: Laboratory Results - last 24 hr 06/10/22 09:33: Vancomycin Trough 12.4 H 06/10/22 10:45: Activated Clotting Time 300 H* 06/10/22 11:11: Activated Clotting Time > 400 H* D 06/10/22 11:50: Activated Clotting Time 260 H* D 06/10/22 12:36: Activated Clotting Time 307 H* 06/10/22 12:55: Activated Clotting Time 208 H* D 06/11/22 05:35: WBC 15.3 H, RBC 4.14 L, Hgb 11.6 L D, Hct 36.1 L, MCV 87.1, MCH 27.9, MCHC 32.0, RDW 14.2, Plt Count 370, MPV 7.7, Neut % (Auto) 86.0 H, Lymph % (Auto) 7.3 L, [place] % (Auto) 5.9, Eos % (Auto) 0.4, Baso % (Auto) 0.3, Neut # (Auto) 13.2 H, Lymph # (Auto) 1.1, [place] # (Auto) 0.9, Eos # (Auto) 0.1, Baso # (Auto) 0.1, Total Counted 100, Neutrophils % (Manual) 89 H, Lymphocytes % (Manual) 7 L, Monocytes % (Manual) 4, Platelet Estimate Normal, RBC Morphology Normal 06/11/22 05:35: Sodium 135 L, Potassium 3.9, Chloride 100, Carbon Dioxide 25, Anion Gap 13.9, BUN 12, Creatinine 0.70, Estimated Creat Clear 117, Estimated GFR 112, Est GFR ( Amer) 136, Glucose 117 H, Calcium 8.0 L Medical History: Medical History (Updated 06/10/22 @ 09:39 by Tran Lyle APRN) Arthritis of right hip Benign essential HTN Bilateral carotid artery stenosis Cellulitis of left foot Coronary artery disease Open wound of toe of left foot Osteomyelitis of great toe of left foot Syncope Assessment and Plan Assessment and plan all Dx Assessment and Plan for all problems:: PATIENT'S VANCOMYCIN TROUGH LEVEL WAS 12.4 MCG/ML YESTERDAY. PATIENT HAD HEART CATH YESTERDAY AND DOSE WAS DELAYED. RETIMED DOSE FOR VANCOMYCIN 2000 MG Q12H STARTING AT 1500 ON 06/10/22.
--- NOTE | 2022-06-11 11:18 | EXP.CARD.PN ---
Subjective Subjective Date: 06/11/22 Time: 11:00 Principal diagnosis: CAD, syncope, OM of L great toe Interval history: This is a 67-year-old white gentleman who presented to the emergency department complaints of a wound to his left great toe. He had had the wound for over a year per his report and his 's report. The patient was found to have osteomyelitis of the left great toe and podiatry is wanting to undergo amputation. However, prior to surgery cardiology clearance was requested. The patient does have a history of extensive coronary artery disease that was seen on a CT back in 2018. He did have a mild degree of LV dysfunction on current echocardiogram which was concerning because of the extensive coronary artery disease he had noted on his CT scan which was never treated. The patient underwent left cardiac catheterization yesterday and underwent revascularization. This was a very extensive, prolonged procedure due to how calcified his coronary arteries were. The patient had stenting for critical 3-4 vessel disease with a stent in the ostial/proximal/distal left main extending into the ramus and LAD. The patient had persistent severe/critical right coronary artery disease. The procedure had to be stopped because of the amount of contrast that he had while intervening on the left system. The patient was also scheduled to undergo left lower extremity runoff but this was not completed due to the large contrast load it took to intervene on his left coronary system. The patient is on Brilinta and aspirin for dual antiplatelet therapy. This morning he denies any chest pain or pressure. He denies any shortness of breath or edema. He denies any fever, chills, nausea, vomiting, diarrhea, PND and or orthopnea. Exam Data for Last 24 hours Vital signs and Labs for Last 24 Hours: Temp Pulse Resp BP Pulse Ox FiO2 97.6 F 71 21 170/85 H 97 30 06/11/22 04:00 06/11/22 10:00 06/11/22 10:00 06/11/22 10:00 06/11/22 10:00 06/11/22 10:10 Laboratory Results - last 24 hr 06/10/22 10:45: Activated Clotting Time 300 H* 06/10/22 11:11: Activated Clotting Time > 400 H* D 06/10/22 11:50: Activated Clotting Time 260 H* D 06/10/22 12:36: Activated Clotting Time 307 H* 06/10/22 12:55: Activated Clotting Time 208 H* D 06/11/22 05:35: WBC 15.3 H, RBC 4.14 L, Hgb 11.6 L D, Hct 36.1 L, MCV 87.1, MCH 27.9, MCHC 32.0, RDW 14.2, Plt Count 370, MPV 7.7, Neut % (Auto) 86.0 H, Lymph % (Auto) 7.3 L, [place] % (Auto) 5.9, Eos % (Auto) 0.4, Baso % (Auto) 0.3, Neut # (Auto) 13.2 H, Lymph # (Auto) 1.1, [place] # (Auto) 0.9, Eos # (Auto) 0.1, Baso # (Auto) 0.1, Total Counted 100, Neutrophils % (Manual) 89 H, Lymphocytes % (Manual) 7 L, Monocytes % (Manual) 4, Platelet Estimate Normal, RBC Morphology Normal 06/11/22 05:35: Sodium 135 L, Potassium 3.9, Chloride 100, Carbon Dioxide 25, Anion Gap 13.9, BUN 12, Creatinine 0.70, Estimated Creat Clear 117, Estimated GFR 112, Est GFR ( Amer) 136, Glucose 117 H, Calcium 8.0 L I & O for Last 24 hours: Intake & Output 06/08/22 06/09/22 06/10/22 06/11/22 23:59 23:59 23:59 23:59 Intake Total 2284 / 2284 559 / 559 1886 / 1886 Output Total 600 / 600 0 / 0 0 / 0 400 / 400 Balance -600 / -600 2284 / 2284 559 / 559 1486 / 1486 Weight 239 lb 3 oz 239 lb 8 oz 238 lb 1.588 oz 253 lb 6 oz Microbiology Reports for the Last 24 Hours: Microbiology 06/08/22 13:45 Blood Blood Culture - Preliminary NO GROWTH AFTER 48 HOURS 06/08/22 13:45 Blood Blood Culture - Preliminary NO GROWTH AFTER 48 HOURS 06/08/22 13:26 Foot,Left Gram Stain - Final 06/08/22 13:26 Foot,Left Wound Culture - Preliminary Providencia rettgeri Gram Positive Cocci Narrative: Telemetry strip is sinus rhythm Constitutional Constitutional: no acute distress and obese *Routine HEENT Exam Head: Present normocephalic and atraumatic
--- NOTE | 2022-06-11 17:20 | EXP.PN ---
Subjective *Date: 06/11/22 *Time: 17:20 Interval history: Date of service 06/11/2022 The patient is lying in bed accompanied by his who is at bedside. He denies chest pain or palpitations. He reports improved right hip pain. He continues with his Integrilin drip for his complicated coronary artery disease identified yesterday on left heart cath. I am accompanied by multiple team members from the MDR team. Nursing staff report that he remains afebrile with stable vital signs and saturating appropriately on 2 L of oxygen. Nursing staff report that he continues to decline statin therapy. Cardiology and podiatry continue to follow. He is tolerating his IV antibiotic therapy with no adverse events. We have reviewed and discussed this morning labs. Exam Data for Last 24 hours Vital signs and Labs for Last 24 Hours: Temp Pulse Resp BP Pulse Ox FiO2 97.8 F 75 21 141/62 H 97 30 06/11/22 12:00 06/11/22 14:00 06/11/22 14:00 06/11/22 14:00 06/11/22 14:00 06/11/22 10:10 Laboratory Results - last 24 hr 06/11/22 05:35: WBC 15.3 H, RBC 4.14 L, Hgb 11.6 L D, Hct 36.1 L, MCV 87.1, MCH 27.9, MCHC 32.0, RDW 14.2, Plt Count 370, MPV 7.7, Neut % (Auto) 86.0 H, Lymph % (Auto) 7.3 L, [place] % (Auto) 5.9, Eos % (Auto) 0.4, Baso % (Auto) 0.3, Neut # (Auto) 13.2 H, Lymph # (Auto) 1.1, [place] # (Auto) 0.9, Eos # (Auto) 0.1, Baso # (Auto) 0.1, Total Counted 100, Neutrophils % (Manual) 89 H, Lymphocytes % (Manual) 7 L, Monocytes % (Manual) 4, Platelet Estimate Normal, RBC Morphology Normal 06/11/22 05:35: Sodium 135 L, Potassium 3.9, Chloride 100, Carbon Dioxide 25, Anion Gap 13.9, BUN 12, Creatinine 0.70, Estimated Creat Clear 117, Estimated GFR 112, Est GFR ( Amer) 136, Glucose 117 H, Calcium 8.0 L I & O for Last 24 hours: Intake & Output 06/08/22 06/09/22 06/10/22 06/11/22 23:59 23:59 23:59 23:59 Intake Total 2284 / 2284 559 / 559 1886 / 1886 Output Total 600 / 600 0 / 0 0 / 0 1200 / 1200 Balance -600 / -600 2284 / 2284 559 / 559 686 / 686 Weight 108.494 kg 108.635 kg 108 kg 114.929 kg Microbiology Reports for the Last 24 Hours: Microbiology 06/08/22 13:45 Blood Blood Culture - Preliminary NO GROWTH AFTER 48 HOURS 06/08/22 13:45 Blood Blood Culture - Preliminary NO GROWTH AFTER 48 HOURS Constitutional Constitutional: no acute distress *Routine HEENT Exam Head: Present normocephalic and atraumatic Eye: Present EOMI and PERRL ENT: Present mucous membranes moist *Routine Neck Exam Neck: Present supple, carotid bruit and trachea midline *Routine Respiratory Exam Respiratory: Present CTA bilaterally, normal respiratory effort and symmetric chest movement; Absent respiratory distress *Routine Cardiovascular Exam Cardiovascular: Present RRR; Absent murmur *Routine Abdominal Exam Abdominal: Present soft and normoactive bowel sounds *Routine Extremities Exam Extremities: Present normal capillary refill; Absent cyanosis or edema *Routine Skin Exam Skin: Present intact and normal turgor; Absent petechiae or rash *Routine Neurological Exam Neurological: Present alert, oriented X3, vision grossly intact, hearing grossly intact and normal speech; Absent sensory deficit or motor deficit Routine Psychiatric Exam Psychiatric: Present cooperative and depressed Assessment and Plan *Assessment and plan (1) Syncope: Status: Acute Category: Medical Code(s): R55 - Syncope and collapse (2) Open wound of toe of left foot: Status: Acute Category: Medical Code(s): S91.109A - Unspecified open wound of unspecified toe(s) without damage to nail, initial encounter (3) Osteomyelitis of great toe of left foot: Status: Acute Category: Medical Code(s): M86.9 - Osteomyelitis, unspecified (4) Coronary artery disease: Status: Acute Qualifiers: Coronary Disease-Associated Artery/Lesion type: [place] a
--- NOTE | 2022-06-11 17:46 | CT_ITS ---
PROCEDURE INFORMATION: Exam: CT Head Without Contrast Exam date and time: 06/11/2022 5:42 PM Age: 67 years old Clinical indication: Stroke-like symptoms; Altered mental status/memory loss; Additional info: Stroke symtpons TECHNIQUE: Imaging protocol: Computed tomography of the head without contrast. Radiation optimization: All CT scans at this facility use at least one of these dose optimization techniques: automated exposure control; mA and/or kV adjustment per patient size (includes targeted exams where dose is matched to clinical indication); or iterative reconstruction. Other technique: STROKE PROTOCOL was implemented. COMPARISON: CT HEAD/BRAIN WO CON 06/09/2022 11:22 AM FINDINGS: Brain: No acute intracranial hemorrhage is visualized. The damon-white differentiation is preserved demonstrating no acute territorial type infarct. There is moderate cerebral white matter hypodensity, likely representing small vessel ischemic disease in a patient this age. The acuity of the white matter disease is indeterminate. There is no midline shift. Artifact limits evaluation of the fernanda. Cerebral ventricles: There is mild prominence of the ventricles and sulci, compatible with atrophy. Paranasal sinuses: Mild mucosal thickening of the right maxillary sinus and a few ethmoid air cells. A small mucous retention cyst or polyp is seen within a right anterior ethmoid air cell. Mastoid air cells: No mastoid effusion. Bones/joints: The calvarium demonstrates no evidence for a depressed fracture. Soft tissues: Unremarkable. Vasculature: Intracranial atherosclerosis visualized. IMPRESSION: 1. No acute intracranial hemorrhage or acute territorial type infarct. 2. There is moderate cerebral white matter hypodensity, likely representing small vessel ischemic disease in a patient this age. 3. Mild atrophy. 4. If further evaluation is clinically indicated, an MRI of the brain is recommended. ASSESSMENT: Gay Stroke Program Early CT Score (ASPECTS) = 10
--- NOTE | 2022-06-11 19:33 | PC.NURSE ---
1741: stroke alert called. Pt is nonverbal and unable to follow commands. He had just returned to bed from bathroom with 2 person assist within 5 minutes of symptom onset. 1743: Dr. Nava arrived to bedside. NIH scale >20 upon assessment. FSBS 111. SBP 130s. P 70. O2 sat high 90s on 2L NC. Pt taken to CT scan in ED. After CT scan and on way back up to pt's room, he became more alert and was able to follow commands, tell us what year it was, his 's name, and where he was. Dr. Nava @ BS upon arrival to room when returning from CT scan 1816: NIH stroke scale 4. RUE and RLE weakness. Pt is verbal, alert & oriented, and follows commands. Dr. Nava updated. Family updated each step of the process. Dr. Valladares recommends to STOP all antihypertensives and to keep SBP 150-160.
[2022-06-11 20:16] LABS: POC Glucose,Bedside 111 (70-110)
--- NOTE | 2022-06-11 21:22 | PC.NURSE ---
checked with ADEN Hester at this time to make sure it was ok to give a sip of water with nighttime medication, Mir ok with a sip of water for pills
[2022-06-12] VITALS (27 sets, daily range): BP systolic 122–158; BP diastolic 60–85; PULSE 75–109; RESP 15–27; TEMP 36.6–37.7; O2SAT 91–100; BMI 32.7
--- NOTE | 2022-06-12 | IR_ITS ---
APPROVED REPORT Patient Location: Inpatient [facility]: BRAYDEN Irwin RT (R) PROCEDURES Selective coronary angiogram Intravascular lithotripsy to the right coronary artery followed by drug-eluting stent deployment to the proximal mid and distal right coronary in a contiguous manner INDICATION Coronary artery disease with heavy calcification, Three-vessel disease with refusal to undergo bypass surgery Informed consent was obtained prior to the procedure. COMPLICATIONS None Estimated Blood Loss: Less than 10 mls TECHNIQUE 1% lidocaine used anesthetize the right anterior aspect of the right wrist. The right radial artery successfully the Salinger technique and a 6 Chinese sheath was placed in the right radial artery. Therapeutic heparin was administered followed by a cocktail of verapamil and nitroglycerin and lidocaine. ACT was therapeutic and the guide catheter was placed in the right coronary followed by a BMW wire. A 3.5 x 12 mm lithotripsy balloon was delivered throughout the proximal and mid segment and 90 impulses predilated the stenosis. A 3.5 x 38 mm resolute [place] stent was deployed at 20 yen in the mid to distal portion reducing the calcified stenosis to 0% with excellent angiograph results. An additional 3.5 x 26 mm resolute [place] stent was placed proximal to this and deployed at 22 yen also producing excellent angiograph results. AURELIA-3 flow was present before and after the procedure. At the end of the procedure the apparatus was removed the sheath was removed and hemostasis was achieved using TR banding patient was transferred to the postop putting in stable addition ANGIOGRAPHIC RESULTS Successful percutaneous revascularization of the right coronary artery preceded by intravascular lithotripsy followed by drug-eluting stent deployment IMPRESSION Continue dual antiplatelet therapy As per discussion with [facility] neurology/stroke team it is now recommended patient be transferred to [facility] for assessment of carotid disease. I would also recommend vascular surgery be involved to discuss the lower extremity PAD PLAN 1. Xarelto 2.5 twice daily plus aspirin 81 mg daily 2. LDL less than 55 to be achieved with high intensity statin Electronically signed by : Arnold Valladares MD 06/12/2022 13:36:31
--- NOTE | 2022-06-12 05:30 | PC.NURSE ---
pt has rested t/o shift, SBP 131-159, HR 68-90, has worn CPAP t/o shift with O2 sats 94-97%, using urinal with assistance, 775 mL out so far, does have some mild aphasia, is able to follow commands, dressing remains in place to left foot, family has remained at bedside
[2022-06-12 06:10] LABS: Basophils % 0.3 % (0.1-2.0); Eosinophils # 0.1 K/mm3 (0.0-0.4); Hematocrit 31.5 % (42.0-52.0); Lymphocytes # 1.2 K/mm3 (0.7-4.5); Lymphocytes % 9.6 % (10-50); Mean Corpuscular HGB Conc 32.8 g/dL (31.8-35.4); Mean Corpuscular Hemoglobin 28.3 pg (27.0-31.2); Mean Corpuscular Volume 86.2 fl (80-94); Mean Platelet Volume 7.7 fl (7.4-10.4); Monocytes # 0.9 K/mm3 (0.1-1.0); Monocytes % 7.1 % (1.7-9.3); Neutrophils # 9.9 K/mm3 (1.8-7.8); Platelet Count 350 K/mm3 (142-424); Red Blood Count 3.66 M/mm3 (4.60-6.20); Red Cell Distribution Width 14.2 % (11.5-17.5)
[2022-06-12 06:25] LABS: Activated Partial Thrombo Time 29.4 seconds (22.8-30.6); INR 1.02 (0.9-1.1)
[2022-06-12 06:26] LABS: Chloride 99 mmol/L (98-107); Potassium 3.8 mmoL/L (3.5-5.1); Sodium 134 mmol/L (136-145)
[2022-06-12 06:29] LABS: Blood Urea Nitrogen 11 mg/dl (9-20); Creatinine Clearance Estimated 117 mL/min (50-200); Estimated Glomerular Filt Rate 96 ml/min (>60); GFR (African American) 117 ML/MIN (>60)
[2022-06-12 06:30] LABS: Anion Gap 12.8 mEq/L (5-15); Calcium 7.9 mg/dl (8.4-10.2); Carbon Dioxide 26 mmol/L (22.0-30.0); Glucose 103 mg/dl (74-100); Hemoglobin 10.5 g/dL (14.1-18.0)
--- NOTE | 2022-06-12 07:00 | P.EN_ITS ---
Date of service 06/11/2022 At 1738 I received a call from Adriane TRACY who identified that the patient had experienced some neurological changes after going to the bathroom. His and daughter were at bedside. The patient was evaluated at 1740 with an NIH greater than 15 and a code stroke was called overhead. A stare was identified with aphasia and complete right upper and lower extremity weakness. The patient had difficulty following commands and answering questions. He emergently underwent CT scan of the at 1742 which identified no acute intracranial hemorrhage or acute territorial type infarct. They did identify moderate cerebral white matter hypodensity likely representing small vessel ischemic disease in a patient this age. His emergent CT was compared to CT scanning of the brain on admission 06/09/2022. A follow-up NIH score at ~1820 performed by nursing staff identified an improving NIH=4 score. Pharmacy was contacted concerning the possibility of tPA administration. [facility] stroke team was contacted to assist with post tPA care if indicated. 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 Those studies were compared to previous carotid ultrasound from 2018. On 06/11 the patient underwent left heart catheterization which identified severe to critical 3-4 vessel coronary disease with stent deployment and multiple balloon interventions. The patient did require heparin administration during his left heart catheterization and Integrilin drip for 18 hours. He was started on dual antiplatelet therapy and high-dose statin therapy on admission. It is noted that the patient declined his statin therapy. He is due to return to the [employer] [facility] on 06/12 to explore his right side circulation. [facility] neurology team recommended against tPA administration secondary to his heparin therapy during his heart cath on 06/10. They did recommend to proceed with evaluation of his right-sided cardiac circulation and then transition the patient to a tertiary care center for his identified carotid artery disease and neurological changes. We discussed maintaining his systolic blood pressure greater than 120 and less than 180. I spoke with his teaching assistant by phone Dr. Valladares and we discussed the events of the evening (Adriane TRACY assisting). I was accompanied by multiple members of the medical team including nursing staff and triage clinician to discuss the plan of care with the family at bedside. Patient education was provided and encouraged concerning compliance with his statin therapy and to continue with his dual antiplatelet therapy. He will remain n.p.o. through the evening with routine neurological evaluations. He is currently on Lovenox for DVT prophylaxis.
--- NOTE | 2022-06-12 08:46 | PC.NURSE ---
pt to cathlab
--- NOTE | 2022-06-12 08:59 | EXP.PHA.PN ---
Subjective *Date: 06/12/22 *Time: 08:59 Medical Exam Vital signs and Labs for Last 24 Hours: Vital Signs Temp Pulse Pulse Resp BP Pulse Ox FiO2 06/12/22 07:00 92 H 23 151/85 H 96 06/12/22 08:00 91 H 22 155/81 H 95 06/12/22 06:00 93 H 20 155/67 H 96 06/12/22 04:00 90 06/12/22 05:00 87 21 144/66 H 95 06/12/22 04:00 96 06/12/22 04:00 88 20 157/72 H 96 06/12/22 04:00 98.8 F 06/12/22 03:00 87 22 132/66 94 L 06/12/22 02:00 90 20 140/70 96 06/12/22 00:00 90 06/11/22 20:00 70 06/12/22 00:00 87 21 140/63 94 L 06/11/22 23:00 74 20 159/61 H 96 06/11/22 21:00 71 21 131/69 95 06/12/22 00:00 99.0 F 06/11/22 22:00 78 20 158/79 H 97 06/11/22 20:00 95 06/11/22 20:00 68 20 136/62 95 06/11/22 20:00 98.6 F 06/11/22 19:00 71 134/63 92 L 06/11/22 18:00 80 132/56 L 96 06/11/22 16:00 75 135/63 98 06/11/22 17:00 83 126/56 L 98 06/11/22 15:00 71 117/66 98 06/11/22 13:00 68 141/68 H 97 06/11/22 11:00 74 157/78 H 98 06/11/22 09:00 70 170/86 H 96 06/11/22 16:00 70 06/11/22 12:00 70 06/11/22 14:00 75 21 141/62 H 97 06/11/22 12:00 97.8 F 70 20 140/68 98 06/11/22 10:00 71 21 170/85 H 97 06/11/22 10:10 30 Intake and Output 06/11/22 06/12/22 06/12/22 23:59 07:59 15:59 Intake Total 1599 / 1599 Output Total 325 / 1525 450 / 450 Balance -325 / 361 1149 / 1149 Intake: Intake, Total IV Amount 1599 / 1599 Cefepime HCl 1 gm In 0.9 % 50 / 50 Sodium Chloride 50 ml @ 100 mls /hr IV Q12H [facility] Rx#:[id number] Metronidaz/Sod Chl 500 mg In 200 / 200 100 ml @ 100 mls/hr IV Q8H [facility] Rx#:[id number] Ringers Solution,Lactated 1,000 1099 / 1099 ml @ 125 mls/hr IV .Q8H [facility] Rx #:[id number] Vancomycin HCl 2,000 mg In 0.9 250 / 250 % Sodium Chloride 250 ml @ 125 mls/hr IV 1100,2300 [facility]TE Rx#: [id number] Output: Output, Urine Amount 325 / 1525 450 / 450 Other: Weight 115.8 kg Patient Weight 06/12/22 23:59 Weight 115.8 kg Laboratory Results - last 24 hr 06/11/22 17:47: POC Glucose 111 H 06/12/22 05:35: WBC 12.0 H, RBC 3.66 L, Hgb 10.5 L, Hct 31.5 L, MCV 86.2, MCH 28.3, MCHC 32.8, RDW 14.2, Plt Count 350, MPV 7.7, Neut % (Auto) 82.0 H, Lymph % (Auto) 9.6 L, [place] % (Auto) 7.1, Eos % (Auto) 1.0, Baso % (Auto) 0.3, Neut # (Auto) 9.9 H, Lymph # (Auto) 1.2, [place] # (Auto) 0.9, Eos # (Auto) 0.1, Baso # (Auto) 0.0 06/12/22 05:35: PT 11.0, INR 1.02, APTT 29.4 06/12/22 05:35: Sodium 134 L, Potassium 3.8, Chloride 99, Carbon Dioxide 26, Anion Gap 12.8, BUN 11, Creatinine 0.80, Estimated Creat Clear 117, Estimated GFR 96, Est GFR ( Amer) 117, Glucose 103 H, Calcium 7.9 L I & O for Labs for Last 24 Hours: Intake & Output 06/09/22 06/10/22 06/11/22 06/12/22 23:59 23:59 23:59 23:59 Intake Total 2284 / 2284 559 / 559 1886 / 1886 1599 / 1599 Output Total 0 / 0 0 / 0 1525 / 1525 450 / 450 Balance 2284 / 2284 559 / 559 361 / 361 1149 / 1149 Weight 108.635 kg 108 kg 114.929 kg 115.8 kg The patient's infection will respond to the chosen ABx?: Yes (OSTEOMYELITIS; PROVIDENCIA RETTGERI CEFEPIME SUSCEPTIBLE) Is the patient receiving the right drug, dose, and route?: Yes Could a more targeted ABx be ordered?: No
--- NOTE | 2022-06-12 09:13 | EXP.CARD.PN ---
Subjective Subjective Date: 06/12/22 Time: 08:30 Principal diagnosis: CAD, syncope, OM of L great toe Interval history: This is a 67-year-old white gentleman who presented to the emergency department complaints of a wound to his left great toe. He states that he has had the wound for over a year. He was found to have osteomyelitis of the left great toe and podiatry wanted to undergo amputation. However, prior to proceeding with amputation the patient required cardiology clearance. The patient had known extensive coronary artery disease and underwent left cardiac catheterization with extensive/prolonged stenting and ballooning to the calcified coronary arteries. He had stenting for critical 3-4 vessel disease with a stent in the ostial/proximal/distal left main extending into the ramus and the LAD. He had persistent disease to his right coronary artery and the patient is going back to the cardiac catheterization laboratory today for revascularization of the right coronary artery and depending on how much contrast is used he may also undergo a left lower extremity runoff today secondary to the osteomyelitis and poorly healing wound in the left lower extremity. Overnight last night the patient had an event where he experienced some some neurological changes while going to the bathroom. A stroke alert was called and [facility] stroke team was contacted. They recommended against tPA administration secondary to him receiving heparin during his left cardiac catheterization on 1026. He does have severe carotid disease so [facility] stroke team recommended proceeding with the right-sided cardiac circulation revascularization today and then transferring him to a tertiary care facility for intervention for his left carotid artery disease. On carotid ultrasound this was estimated at less than 50% but in the setting of this TIA with right-sided hemiparesis that recommend intervention on the carotid. Please see event note from 06/11/2022 for further details. The patient was on dual antiplatelet therapy following his stenting and did receive heparin as well as an Integrilin drip. He was started on a statin but had refused taking the statin until last night. This morning he still has some right-sided hemiparesis. He does have some aphasia noted as well. He denies chest pain or pressure. He denies shortness of breath. He denies fever, chills, nausea, vomiting, diarrhea, PND or orthopnea. Exam Data for Last 24 hours Vital signs and Labs for Last 24 Hours: Temp Pulse Resp BP Pulse Ox FiO2 98.8 F 91 H 22 155/81 H 95 30 06/12/22 04:00 06/12/22 08:00 06/12/22 08:00 06/12/22 08:00 06/12/22 08:00 06/11/22 10:10 Laboratory Results - last 24 hr 06/11/22 17:47: POC Glucose 111 H 06/12/22 05:35: WBC 12.0 H, RBC 3.66 L, Hgb 10.5 L, Hct 31.5 L, MCV 86.2, MCH 28.3, MCHC 32.8, RDW 14.2, Plt Count 350, MPV 7.7, Neut % (Auto) 82.0 H, Lymph % (Auto) 9.6 L, [place] % (Auto) 7.1, Eos % (Auto) 1.0, Baso % (Auto) 0.3, Neut # (Auto) 9.9 H, Lymph # (Auto) 1.2, [place] # (Auto) 0.9, Eos # (Auto) 0.1, Baso # (Auto) 0.0 06/12/22 05:35: PT 11.0, INR 1.02, APTT 29.4 06/12/22 05:35: Sodium 134 L, Potassium 3.8, Chloride 99, Carbon Dioxide 26, Anion Gap 12.8, BUN 11, Creatinine 0.80, Estimated Creat Clear 117, Estimated GFR 96, Est GFR ( Amer) 117, Glucose 103 H, Calcium 7.9 L I & O for Last 24 hours: Intake & Output 06/09/22 06/10/22 06/11/22 06/12/22 23:59 23:59 23:59 23:59 Intake Total 2284 / 2284 559 / 559 1886 / 1886 1599 / 1599 Output Total 0 / 0 0 / 0 1525 / 1525 450 / 450 Balance 2284 / 2284 559 / 559 361 / 361 1149 / 1149 Weight 239 lb 8 oz 238 lb 1.588 oz 253 lb 6 oz 255 lb 4.725 oz Microbiology Reports for the Last 24 Hours: Microbiology 06/08/22 13:45 Blood Blood Culture - Preliminary NO GROWTH AFTER 48 HOURS 06/08/22 13:45 Blood Blood Culture - Preliminary NO GROWTH AFTE
--- NOTE | 2022-06-12 10:08 | PC.NURSE ---
pt back from [facility]. GCS 15. Family @ [facility].
--- NOTE | 2022-06-12 10:09 | PC.NURSE ---
courtesy tech apolonia : Pt is back and getting settled in his room after procedure. no requested voiced at this time
[2022-06-12 10:51] LABS: CATHL Activated Clotting Time 254 SEC (74-125)
[2022-06-12 10:52] LABS: CATHL Activated Clotting Time 277 SEC (74-125)
--- NOTE | 2022-06-12 11:21 | EXP.DC.SUM ---
General Admission date:: 06/09/22 Discharge date: 06/12/22 HPI HPI HPI: Mr. Alexandra is a 67-year-old male who is on no medications at this time. No significant past medical history other than a wound on his left great toe that was being treated with graft by podiatry. He last saw them earlier this year and was lost to follow-up. Patient presented today to the ER via EMS because his reported an episode where he became dizzy and altered. He went to get up from a chair and became confused and made concerning noises. Due to his altered mental status, she brought him to the ER for further evaluation. On arrival he was feeling better, work-up obtained including imaging of his foot (noted to be abnormal with a draining wound), EKG, and labs. Patient's labs concerning for elevated white cell count. Vitals normal. Imaging positive for osteomyelitis of distal phalanx of left great toe. Podiatry and medicine consulted for admission and possible surgery. Of note, patient is not diabetic last A1c today 5.6%. He is back to baseline mentation at this time. Denies shortness of breath, chest pain, nausea, vomiting. Mild pain with palpation of the toe. Otherwise no fevers. Does complain of some pain in his right hip that is chronic. Hospital Course Hospital Course Hospital Course: The patient was admitted to the [facility] unit on telemetry. Blood and wound cultures were acquired. He was started on broad-spectrum antibiotic therapy. Cardiology and podiatry were consulted. Labs and inflammatory markers were trended. ABIs were acquired that identified abnormalities on the right and his chronic wound is his left great toe. Evaluation of past medical records identified previous imaging of his carotids identifying carotid artery disease and abnormal CTA of his coronaries. Repeat carotid Dopplers identified complete occlusion of the right ICA with 50% left ICA disease. Cardiology recommended left heart cath with the anticipation of aortogram with runoffs for concerns of peripheral vascular disease for his nonhealing left foot wound. He underwent left heart cath on 06/10 and required 4 stents to his left circulation with multiple balloon interventions. Because of the complexity of his left catheterization his right side circulation was postponed and the patient was rescheduled for a repeat heart cath. On at 1738 I received a call from Adriane TRACY who identified that the patient had experienced some neurological changes after going to the bathroom.? His and daughter were at bedside.? The patient was evaluated at 1740 with an NIH greater than 15 and a code stroke was called overhead.? A stare was identified with aphasia and complete right upper and lower extremity weakness.? The patient had difficulty following commands and answering questions.? He emergently underwent CT scan of the at 1742 which identified no acute intracranial hemorrhage or acute territorial type infarct.? They did identify moderate cerebral white matter hypodensity likely representing small vessel ischemic disease in a patient this age.? His emergent CT was compared to CT scanning of the brain on admission 06/09/2022.? A follow-up NIH score at ~1820 performed by nursing staff identified an improving NIH=4 score.? Pharmacy was contacted concerning the possibility of tPA administration.? healthcare stroke team was contacted to assist with post tPA care if indicated.? Pertinent to the patient's history he has recently undergone carotid ultrasound which identified complete occlusion of his right internal carotid artery and some disease on the left internal carotid artery.? Those studies were compared to previous carotid ultrasound from 2018.? On 06/11 the patient underwent left heart catheterization which identified severe to critical 3-4 vessel coronary disease with stent deployment and multiple balloon interventions.? The patient did require heparin administration during his left heart cathet
--- NOTE | 2022-06-12 11:47 | PC.NURSE ---
pt reports that he has to urinate but is unable to. 450mL urine obtained when I&O cath performed.
--- NOTE | 2022-06-12 17:35 | PC.NURSE ---
report called to Adeline @ [facility]. Bed assignment as follows: [facility] [place] 1 5th floor Room 118
--- NOTE | 2022-06-12 17:46 | PC.NURSE ---
called [facility] for transport. Rea reports that she does not have a transport truck until 8pm. Family updated.
--- NOTE | 2022-06-12 21:53 | PC.NURSE ---
patient left with EMS at this time.
--- NOTE | 2022-06-12 22:00 | PC.NURSE ---
Pt and family refused PM meds due to hiccups. Pt left with [facility] at 2153 to be transported to [facility]
== END 2022-06-12 21:53 | disposition short-term general hospital (02) | DRG 982 ==
LOC: ER 15:53 → 2ND 16:08
PROVIDERS: Internal Medicine; Admitting Provider Internal Medicine Adolescent Medicine; Emergency Provider Emergency Medicine; PCP Family Medicine; Visit Provider Family Medicine
PROC: 027237Z Dilation of Coronary Artery, Three Arteries with Four or More Drug-eluting Intraluminal Devices, Percutaneous Approach (ICD-10-PCS; principal; 2022-06-10 12:15)
PROC: 027035Z Dilation of Coronary Artery, One Artery with Two Drug-eluting Intraluminal Devices, Percutaneous Approach (ICD-10-PCS; principal; 2022-06-12 08:00)
DX: M86.9 Osteomyelitis, unspecified (principal); G45.9 Transient cerebral ischemic attack, unspecified; L03.116 Cellulitis of left lower limb; M84.478A Pathological fracture, left toe(s), initial encounter for fracture; G81.91 Hemiplegia, unspecified affecting right dominant side; S91.109A Unspecified open wound of unspecified toe(s) without damage to nail, initial encounter; I65.23 Occlusion and stenosis of bilateral carotid arteries; M16.11 Unilateral primary osteoarthritis, right hip; I25.10 Atherosclerotic heart disease of native coronary artery without angina pectoris; G47.33 Obstructive sleep apnea (adult) (pediatric); L97.522 Non-pressure chronic ulcer of other part of left foot with fat layer exposed; I10 Essential (primary) hypertension; Z79.899 Other long term (current) drug therapy; R55 Syncope and collapse; E66.9 Obesity, unspecified; Z68.32 Body mass index [BMI] 32.0-32.9, adult; M25.551 Pain in right hip; G89.29 Other chronic pain; R29.715 NIHSS score 15
CPT/HCPCS: 0715T; 36415; 70450; 73502; 73630; 80048; 80053; 80061; 80202; 81001; 82962; 83036; 83605; 83735; 84484; 85007; 85025; 85347; 85610; 85651; 85730; 86140; 87040; 87070; 87077; 87186; 87205; 92928; 93005; 93306; 93308; 93451; 93454; 93880; 93923; 94660; 99152; 99153; 99285; C1725; C1760; C1761; C1769; C1876; C9600; C9803; J0692; J1327; J1644; J2405; J3370; Q9967; U0003; U0005